=== PATIENT | male | born 1950 | race Caucasian/White ===

== ENCOUNTER 2020-10-21 09:53 | Outpatient (REF) | payer MEDICARE, SELFPAY | END 2020-10-21 09:54 | disposition home or self-care (01) | LOC: HO.LAB 09:53 | PROVIDERS: PCP Family Medicine; Visit Provider Internal Medicine | DX: Z20.822 Contact with and (suspected) exposure to COVID-19 (principal) | CPT/HCPCS: C9803; U0003; U0005 ==

== ENCOUNTER 2022-09-30 10:19 | Outpatient (REF) | payer MEDICARE, SELFPAY ==
[2022-09-30 12:13] LABS: Alanine Aminotransferase 16 U/L (0-40); Albumin Level 4.4 g/dL (3.5-5.0); Alkaline Phosphatase 53 U/L (39-117); Anion Gap 13 (12-20); Aspartate Amino Transferase 20 U/L (5-37); Bilirubin Total 0.5 mg/dL (0.0-1.0); Blood Urea Nitrogen 15 mg/dL (9-16); Calcium 9.4 mg/dL (8.4-10.2); Carbon Dioxide 25 mmol/L (22-29); Chloride 102 mmol/L (96-108); Cholesterol 112 mg/dL; Estimated Glomerular Filt Rate > 60; Glucose Random 125 mg/dL (60-115); HDL Cholesterol 38 mg/dL; LDL Cholesterol Calculated 60 mg/dl; Potassium 4.9 mmol/L (3.3-5.1); Sodium 135 mmol/L (135-145); Total Protein 7.7 g/dL (6.5-8.0); Triglycerides 73 mg/dL
[2022-09-30 12:30] LABS: Creatinine Urine 86.73 mg/dL; Microalbumin Urine < 5.0 mg/L
== END 2022-09-30 10:20 | disposition home or self-care (01) ==
LOC: HO.HHCL 10:19
PROVIDERS: Visit Provider General Practice
DX: E11.9 Type 2 diabetes mellitus without complications (principal)
CPT/HCPCS: 36415; 80053; 80061; 82043

== ENCOUNTER 2023-11-24 10:32 | Outpatient (REF) | payer SELFPAY ==
[2023-11-24 12:23] LABS: Alanine Aminotransferase 21 U/L (0-40); Albumin Level 4.3 g/dL (3.5-5.0); Alkaline Phosphatase 56 U/L (39-117); Anion Gap 10 (12-20); Aspartate Amino Transferase 20 U/L (5-37); Bilirubin Total 0.5 mg/dL (0.0-1.0); Blood Urea Nitrogen 14 mg/dL (9-16); Calcium 9.4 mg/dL (8.4-10.2); Carbon Dioxide 28 mmol/L (22-29); Chloride 105 mmol/L (96-108); Cholesterol 111 mg/dL (<200); Estimated Glomerular Filt Rate > 60; Glucose Random 117 mg/dL (60-115); HDL Cholesterol 42 mg/dL (>40); LDL Cholesterol Calculated 56 mg/dL (<100); Potassium 4.4 mmol/L (3.3-5.1); Sodium 139 mmol/L (135-145); Total Protein 7.7 g/dL (6.5-8.0); Triglycerides 65 mg/dL (<150)
[2023-11-24 12:27] LABS: Creatinine Urine 153.23 mg/dL; Microalbum/Creatinine Ratio Ur 7.1 ug/mg cr (<30)
[2023-11-24 12:31] LABS: ~HepC Num1 0.23 S/CO (0.00-0.79); ~Hepatitis C Antibody Nonreactive (Nonreactive)
== END 2023-11-24 10:33 | disposition home or self-care (01) ==
LOC: HO.HHCL 10:32
PROVIDERS: Visit Provider General Practice
DX: E11.9 Type 2 diabetes mellitus without complications (principal)
CPT/HCPCS: 36415; 80053; 80061; 82043; 82570; 86803

== ENCOUNTER 2024-10-21 07:44 | Day surgery (SDC) | payer OTHER, SELFPAY ==
--- OUTSIDE RECORDS SUMMARY | 2024-09-16 14:51 | XMS_ITS | Encounter Summary ---
Author Organization [employer] Address [address] [place] [address] Care Team Providers Care Coffee Urn Attendant Name Role Phone Tammie Bey MD Primary Care Provider [phone] Encounter Details Date Type Department Care Team (Late st Contact Info) Description 05/30/2022 Orders Only [facility] [address] [place] [address] Emili Padilla MD [address] [place] [address] Social History Tobacco Use Types Packs/Day Years Used Date Smoking Tobacco: Never Assessed Sex and Gender Information Value Date Recorded Sex Assigned at Male 01/03/2022 10:14 AM EDT Legal Sex Male 10:14 AM EDT Gender Identity Male 01/03/2022 10:14 AM EDT Sexual Orientation Straight 01/03/2022 10 :14 AM EDT documented as of this encounter Plan of Treatment Upcoming Encounters Date Type Department Care Team (Late st Contact Info) Description 02/25/2025 9:00 AM EST Office Visit [facility] [address] [place] [address] Julian Queenaris [address] [place] [address] documented as of this encounter Visit Diagnoses Not on filedocumented in this encounter Care Teams Coffee Urn Attendant Relationship Specialty Start Date End Date Tammie Bey MD [address] [place] [address] PCP - General Family Medicine 10/29/21 documented as of this encounter
--- OUTSIDE RECORDS SUMMARY | 2024-09-16 14:51 | XMS_ITS | Patient Health Record ---
Author Organization [facility] Address [address] [place] [address] Care Team Providers Care Hip Hop Dance Instructor Name Role Phone Tammie Bey M.D. Primary Care Provider Jaison Wyman Unavailable [phone] Allergies Allergen (clinical drug ingredient) Drug/Non Drug Allergy documented on EMR Reaction Allergy Type Onset Date Status ioversol Ioversol Unknown Drug Allergy Active Reason For Referral No Information Medications Medication SIG (Take, Route, Fr equency, Duration) Notes Start Date End Date Status Claritin Active metFORMIN HCl Active amLODIPine Besylate Active Simvastatin Active Diovan Active Social History Tobacco Use: Social History Observation Description Date Details (start date - stop date) Never Smoker NA - NA Tobacco Control (Standard) Question Answer Notes Tobacco use: Nonsmoker AUDIT-C (Standard) Question Answer Notes Did you have a drink contain ing alcohol in the past year? Yes How often did you have a dri nk containing alcohol in the past year? Monthly or less (1 point) How many drinks did you have on a typical day when you were drinking in the past year? 1 or 2 drinks (0 point) How often did you have six o r more drinks on one occasion in the past year? Never (0 point) Points 1 Interpretation Negative Section Notes: Occasional beers Problems Problem Type SNOMED Code ICD Code Onset Dates Problem Status W/U Status Risk Notes Problem Screen for colon cancer (Z12.11) Active confirmed Problem Preprocedural examination ([id number]) Preprocedural examination (Z01.818) Active confirmed Vital Signs Blood pressure diastolic 77 mm Hg 07/30/2024 Height 63 in 07/30/2024 Blood pressure systolic 111 mm Hg 07/30/2024 Weight 134 lbs 07/30/2024 BMI 23.73 kg/m2 07/30/2024 Procedures Procedure Date Ordered Date Performed Result Body Sit e COLONOSCOPY 07/30/2024 N/A Encounters Encounter Location Date Provider Diagnosis [facility] [address] [place] [address] 07/30/2024 Jaison Morin Screen for colon can cer Z12.11 and Preprocedural examination Z01.818 Assessments Encounter Date Diagnosis (ICD Code) Assessment Notes Treatment Notes Treatment Clinical Notes Section Notes 07/30/2024 Screen for colon cancer (ICD-10 - Z12.11) .Overall, Adiel appears quite well. Given his age, good clinical appearance, and last colonoscopy being approximately 10 years ago, I did recommend a follow-up colonoscopy for further screening purposes. We did review the rationale for that in regard to colon cancer prevention. Full consent has been taken for this, including risk of bleeding and perforation. The procedure will be done with monitored anesthesia care. He was given the below instructions regarding adjustment of his medications for the procedure. Adiel was comfortable with this plan. Thank you again for allowing me to participate in Adiel's care. I shall continue to keep you advised of his progress.. 07/30/2024 Preprocedural examination (ICD-10 - Z01.818) .Overall, Adiel appears quite well. Given his age, good clinical appearance, and last colonoscopy being approximately 10 years ago, I did recommend a follow-up colonoscopy for further screening purposes. We did review the rationale for that in regard to colon cancer prevention. Full consent has been taken for this, including risk of bleeding and perforation. The procedure will be done with monitored anesthesia care. He was given the below instructions regarding adjustment of his medications for the procedure. Adiel was comfortable with this plan. Thank you again for allowing me to participate in Adiel's care. I shall continue to keep you advised of his progress.. Plan Of Treatment Pending Test Test Name Order Date COLONOSCOPY 07/30/2024 Next Appt Details Provider Name:Jaison Morin , 10/21/2024 10:20:00 AM, [address] [facility] , [place], [place], [id number], Insurance Providers Payer Name Payer Address Payer Phone Subscriber Number Group Number Insured Name Patient Relationship to Insured Coverage Start Date Coverage End Date [facility] [address] Attn Claims [place] [id number] ADIEL ZHANG Self - patient is the insured Medical (General) History Medical History History ICD Code Asthma NIDDM Hypercholesterolemia Hypertension Hx of prostate cancer Denies [place],CVA,Renal disease Neg colonoscopy in 2003 with me and azucena marie colonoscopy in approx [place] [facility] Surgical History Surgery Date(Month/Year) Work accident left forearm trauma Appendectomy Tonsillectomy and adenoidectomy Obstruction of colon with a temporary colostomy--no cancer--? diverticulitis Prostatectomy in approx. 2004
[2024-10-17 14:48] VITALS: BMI 23.7
--- NOTE | 2024-10-18 09:36 | HO.ANESPROP2 ---
Documented by User: Dalia Peña NP 10/18/24 09:36 HPI - Anesthesia Eval Consult details Narrative: 74yo M for Colonoscopy [facility] Past Medical History Medical History Prostate cancer Elevated cholesterol HTN (hypertension) Diabetes Asthma Surgical History Surgical History History of tonsillectomy and adenoidectomy Hx of appendectomy History of colon resection Hx of prostatectomy H/O colonoscopy Social History Social History Patient Tobacco Use Status: Never used Tobacco Have you been hit, kicked, punched, or otherwise hurt by someone within the past year? If so, by whom?: No Are you DNR?: No Advance Directives: No Advance Directives Information Provided: Yes Meds Allergies Allergy/AdvReac Type Severity Reaction Status Date / Time ioversol Allergy Unknown Verified 11/30/23 16:12 Home Medications ?Medication ?Instructions ?Recorded ?Confirmed ?Last Taken ?Type amlodipine 2.5 mg tablet 2.5 mg PO DAILY 10/17/24 10/17/24 10/21/24 History famotidine 20 mg tablet 20 mg PO BID 10/17/24 10/17/24 10/18/24 History loratadine 10 mg tablet 10 mg PO DAILY PRN allergies 10/17/24 10/17/24 10/18/24 History metformin 500 mg tablet,extended 1,000 mg PO DAILY 10/17/24 10/17/24 10/18/24 History release 24 hr rosuvastatin 20 mg tablet 20 mg PO BEDTIME 10/17/24 10/17/24 10/18/24 History valsartan 80 mg tablet 80 mg PO DAILY 10/17/24 10/17/24 10/21/24 History Exam Height,Weight and Vital Signs: Height 5 ft 3 in Weight 60.781 kg Assessment and Plan Assessment Anesthesia Assessment: Chart Reviewed Documented by User: Sandy Castillo MD 10/21/24 09:41 [facility] Past Medical History Medical History Prostate cancer Elevated cholesterol HTN (hypertension) Diabetes Asthma Family History Family history of problems with anesthesia: No Surgical History Surgical History History of tonsillectomy and adenoidectomy Hx of appendectomy History of colon resection Hx of prostatectomy H/O colonoscopy History of Problems with Anesthesia: No Social History Social History Patient Tobacco Use Status: Never used Tobacco Have you been hit, kicked, punched, or otherwise hurt by someone within the past year? If so, by whom?: No Are you DNR?: No Advance Directives: No Advance Directives Information Provided: Yes Meds Allergies Allergy/AdvReac Type Severity Reaction Status Date / Time ioversol Allergy Unknown Verified 11/30/23 16:12 Home Medications ?Medication ?Instructions ?Recorded ?Confirmed ?Last Taken ?Type amlodipine 2.5 mg tablet 2.5 mg PO DAILY 10/17/24 10/17/24 10/21/24 History famotidine 20 mg tablet 20 mg PO BID 10/17/24 10/17/24 10/18/24 History loratadine 10 mg tablet 10 mg PO DAILY PRN allergies 10/17/24 10/17/24 10/18/24 History metformin 500 mg tablet,extended 1,000 mg PO DAILY 10/17/24 10/17/24 10/18/24 History release 24 hr rosuvastatin 20 mg tablet 20 mg PO BEDTIME 10/17/24 10/17/24 10/18/24 History valsartan 80 mg tablet 80 mg PO DAILY 10/17/24 10/17/24 10/21/24 History Exam Airway Mallampati Class: II TM Dist: >3cm Neck ROM: Limited Heart: RRR Lungs: CTA Assessment and Plan Assessment Anesthesia Assessment: Anesthesia Plan Discussed Final Anesthetic Review Family History of Problems with Anesthesia: No History of Problems with Anesthesia: No NPO: Yes ASA Class: III Final Preanesthetic Review: No Changes in Pt Med Stat, Meds/Allgs Chart Reviewed, Consent Obtained/Reviewed and Anes Risks/Benef Reviewed Patient Risk: Intermediate Procedure Risk: Low Anesthetic Plan Anesthetic Plan: MAC: Disposition: Standard PACU
[2024-10-21 07:58] VITALS: BP 137/79; PULSE 76; RESP 20; TEMP 36.6; O2SAT 98; BMI 23.3
[2024-10-21] MEDS: Lactated Ringers 1,000 ML 100 ML IVCONT (08:22)
[2024-10-21 08:28] LABS: Glucose, Whole Blood 111 mg/dL (60-115)
[2024-10-21 10:30] VITALS: BP 82/39; PULSE 64; RESP 16; TEMP 36.6; O2SAT 95
--- NOTE | 2024-10-21 10:35 | PM.OP ---
Brief Operative Note Date of Service: 10/21/24 Pre-op diagnosis: Screening Post-op diagnosis: other (Diverticulosis) Procedure: Colonoscopy to the cecum and TI Surgeon: Jaison Morin MD Anesthesia: MAC Was an Cold Mill Inspector used for this Procedure?: No Estimated blood loss (mL): 0 Pathology: none sent Condition: stable Disposition: PACU
[2024-10-21 10:45] VITALS: BP 110/57; PULSE 70; RESP 17; TEMP 36.6; O2SAT 95
--- NOTE | 2024-10-21 10:59 | OP_ITS ---
DATE OF SERVICE: 10/21/2024 SURGEON: Jaison Morin MD INDICATIONS: The patient presents for evaluation of colorectal cancer screening. Full consent has been obtained from him for this, including risks of bleeding and perforation. PREOPERATIVE DIAGNOSIS: Colorectal cancer screening. POSTOPERATIVE DIAGNOSIS: PROCEDURE PERFORMED: Colonoscopy to the cecum and terminal ileum. ESTIMATED BLOOD LOSS: COMPLICATIONS: ANESTHESIA: Medication used, monitored anesthesia care. ASSISTANTS: SPECIMENS: POSTOPERATIVE DIAGNOSES: Colorectal cancer screening, diverticulosis, and internal hemorrhoids. DESCRIPTION OF PROCEDURE: The patient was placed in the left lateral decubitus position. The digital rectal exam revealed no abnormalities. The Olympus video pediatric colonoscope was entered into the rectum and advanced easily to the cecum. Once in the cecum, I did identify a normal-appearing cecal pouch with appendiceal orifice and a normal-appearing ileocecal valve. The terminal ileum was cannulated and appeared normal. The scope was withdrawn back in the colon. The entire cecum and ileocecal valve appeared normal. The scope was slowly withdrawn assessing all mucosal surfaces carefully. Preparation was excellent. I did not visualize any sign of polyps, colitis, nor angiodysplasia. There was a mild amount of sigmoid diverticulosis. In the rectum, scope was retroflexed visualizing internal hemorrhoids, but no other pathology. The rectal mucosa appeared normal. The scope was straightened and withdrawn from the patient. He tolerated the procedure well and was returned to the recovery area in stable condition. IMPRESSION: 1. Diverticulosis. 2. Internal hemorrhoids. PLAN: Given today's negative exam, his age, and no family history of first-degree relatives with colorectal cancer, I advised him that I do not think he will need any further screening colonoscopies. He will see me on a p.r.n. basis. MD ASHUTOSH Bianchi/JESUSL / [phone]
== END 2024-10-21 11:26 | disposition home or self-care (01) ==
PROVIDERS: PCP General Practice; Visit Provider Internal Medicine
PROC: 0DJD8ZZ Inspection of Lower Intestinal Tract, Via Natural or Artificial Opening Endoscopic (ICD-10-PCS; CPT 45378; principal; 2024-10-21 09:30)
DX: Z12.11 Encounter for screening for malignant neoplasm of colon (principal); K57.30 Diverticulosis of large intestine without perforation or abscess without bleeding; K64.8 Other hemorrhoids; Z80.0 Family history of malignant neoplasm of digestive organs; E11.9 Type 2 diabetes mellitus without complications; I10 Essential (primary) hypertension; J45.909 Unspecified asthma, uncomplicated; Z85.46 Personal history of malignant neoplasm of prostate; Z79.84 Long term (current) use of oral hypoglycemic drugs; Z79.02 Long term (current) use of antithrombotics/antiplatelets; Z79.899 Other long term (current) drug therapy
CPT/HCPCS: G0105; 82947; J2371; J2704

== ENCOUNTER 2025-01-27 13:45 | Outpatient (REF) | payer OTHER, SELFPAY ==
--- NOTE | ~2025-01-27 | XR_ITS ---
EXAMINATION: XR CHEST CLINICAL INFORMATION: cough and fever COMPARISON: None available. TECHNIQUE: 2 views of the chest were obtained. FINDINGS: The cardiac, hilar, and mediastinal contours are normal. There are calcified lymph nodes in the hilar regions. The lungs are clear bilaterally. There is no pneumothorax or pleural effusion. There is no focal osseous or soft tissue abnormality. XR/XR chest 2V IMPRESSION: No active pulmonary disease. Electronically signed by: Edgar Moreno MD 01/27/2025 03:24 PM RAFAEL
--- OUTSIDE RECORDS SUMMARY | 2025-01-27 13:00 | XMS_ITS | Encounter Summary ---
Author Organization [employer] Address [address] [facility] 7[address] [place] [address] Care Team Providers Care Credit Professional Name Role Phone Tammie Bey MD Primary Care Provider [phone] Reason for Visit * Reason Comments Chills Encounter Details Date Type Department Care Team ([facility] st Contact Info) Description 01/27/2025 1:00 PM EST Office Visit [facility] [address], [place] [phone] Priya Best NP [address] [place], [place] [phone] Fever, unspecified fever cause (Primary Dx); Chills; Elevated blood pressure reading in office with diagnosis of hypertension; Pneumonia due to infectious organism, unspecified laterality, unspecified part of lung Social History Tobacco Use Types Packs/Day Years Used Date Smoking Tobacco: Never Passive Smoke Exposure: Never Smokeless Tobacco: Never Alcohol Use Standard Drinks/Week Comments Defer 0 (1 standard drink = 0.6 oz pur e alcohol) Depression Answer Date Recorded Patient Health Questionnaire-9 Score 0 06/14/2024 Patient Health Questionnaire-9 Score 0 06/14/2024 Last PHQ-9: Questionnaire Data Not on file 0 06/14/2024 Housing Stability Answer Date Recorded What is your housing situation today? I have tien nolasco 12/26/[address] you li ve. Do you have problems with any of the following? None of the above 12/26/2022 Food Insecurity Answer Date Recorded Within the past 12 months, y ou worried that your food would run out before you got money to buy more: Never True 12/26/2022 Within the past 12 months,th e food you bought just didn't last and you didn't have enough money to get more: Never True Transportation Answer Date Recorded In the past 12 months, has l ack of transportation kept you from medical appts, meetings, work or from getting things needed for daily living? No 06/14/2023 Utilities Answer Date Recorded In the past 12 months, has t he electric, gas, oil or water company threatened to shut off services in your home? No 12/26/2022 Depression Answer Date Recorded Patient Health Questionnaire-2 Score 0 06/14/2024 Internet Access Answer Date Recorded Internet Access Q1 Yes 06/05/2024 Internet Access Q2 Not on file 06/05/2024 Sex and Gender Information Value Date Recorded Sex Assigned at Male 01/03/2022 10:14 AM EDT Legal Sex Male 10:14 AM EDT Gender Identity Male 01/03/2022 10:14 AM EDT Sexual Orientation Straight 01/03/2022 10 :14 AM EDT documented as of this encounter Last Filed Vital Signs Vital Sign Reading Time Taken Comments Blood Pressure 172/85 01/27/2025 1:01 PM EST Pulse 90 01/27/2025 1:01 PM EST Temperature 38.4 C (101.2 F) 01/27/2025 1:01 PM EST Respiratory Rate 21 01/27/2025 1:01 PM EST Oxygen Saturation 94% 01/27/2025 1:01 PM EST Inhaled Oxygen Concentration - - Weight 61.4 kg (135 lb 6.4 oz) 01/27/2025 1:01 P M EST Height 154.9 cm (5' 1 ) 01/27/2025 1:01 PM EST Body Mass Index 25.58 01/27/2025 1:01 PM EST documented in this encounter Progress Notes * Priya Best NP - 01/27/2025 1:00 PM EST SUBJECTIVE: John Vann is a 74 y.o. male who presents to the clinic with complaints of: body aches, fever, and chills. Here with John Vann, 74-year-old male - Onset of body aches and feeling hot since last Monday, January 20, 2025 - Reports subjective fever but did not have means of checking - Occasional shortness of breath - Relief of symptoms with Tylenol, tea, and rest - Able to sleep well after taking Tylenol - No runny nose, cough, sore throat, ear pain - Attended a synagogue conference recently where some attendees were coughing - No known sick contacts at home - Taking blood pressure medication Review of Systems Constitutional: Positive for chills and fever. HENT: Negative. Negative for congestion and sore throat. Eyes: Negative for discharge. Respiratory: Positive for shortness of breath. Negative for cough and chest tightness. Cardiovascular: Negative for chest pain and palpitations. Gastrointestinal: Negative. Negative for abdominal pain, constipation, diarrhea and nausea. Genitourinary: Negative. Negative for difficulty urinating. Musculoskeletal: Positive for myalgias. Negative for arthralgias. Skin: Negative for rash. Neurological: Negative. Negative for dizziness, speech difficulty, light- headedness and headaches. Hematological: Negative. Psychiatric/Behavioral: Negative for behavioral problems, self-injury and suicidal ideas. The patient is not nervous/anxious. Current Medications[1] Allergies[2] OBJECTIVE: Visit Vitals BP (!) 172/85 (BP Location: Left arm, Patient Position: Sitting, BP Cuff Size: Adult) Pulse 90 Temp (!) 101.2 ??F (38.4 ??C) (Oral) Resp 21 Ht 5' 1 (1.549 m) Wt 135 lb 6.4 oz (61.4 kg) SpO2 94% BMI 25.58 kg/m?? Smoking Status Never BSA 1.63 m?? Office Visit on 01/27/2025 Component Date Value Ref Range Status Influenza A 01/27/2025 Negative Negative, Indeterminate Final QC Media Lot # 01/27/2025 [id number] Final Lot# Expiration Date 01/27/2025 12,126 Final Influenza B 01/27/2025 Negative Negative, Indeterminate Final QC Media Lot # 01/27/2025 [id number] Final Lot# Expiration Date 01/27/2025 12,126 Final Rapid COVID Ag 01/27/2025 Negative Final QC Media Lot # 01/27/2025 [id number] Final Lot# Expiration Date 01/27/2025 82,426 Final Physical Exam Vitals reviewed. Constitutional: General: He is not in acute distress. Appearance: Normal appearance. He is not ill-appearing. HENT: Head: Normocephalic and atraumatic. Right Ear: Tympanic membrane and external ear normal. Left Ear: Tympanic membrane and external ear normal. Nose: Nose normal. Mouth/Throat: Mouth: Mucous membranes are moist. Comments: Greenish tongue discoloration which he attributes to mouthwash Eyes: General: No scleral icterus. Extraocular Movements: Extraocular movements intact. Cardiovascular: Rate and Rhythm: Normal rate and regular rhythm. Pulses: Normal pulses. Heart sounds: Normal heart sounds. Pulmonary: Effort: Pulmonary effort is normal. No respiratory distress. Breath sounds: Decreased air movement present. Decreased breath sounds present. Musculoskeletal: General: Normal range of motion. Cervical back: Normal range of motion. Lymphadenopathy: Head: Right side of head: Submental adenopathy present. Left side of head: Submental adenopathy present. Cervical: Cervical adenopathy present. Skin: General: Skin is warm and dry. Neurological: General: No focal deficit present. Mental Status: He is alert and oriented to person, place, and time. Gait: Gait normal. Psychiatric: Mood and Affect: Mood normal. Behavior: Behavior normal. ASSESSMENT/PLAN: Chills: - Administer ibuprofen to reduce fever. Encourage increased fluid intake and rest. Fever, unspecified fever cause: - Fever of unknown etiology, possible pneumonia considered. - Differential includes viral and bacterial infection; flu and COVID tests negative. - Ordered chest X-ray to evaluate for pneumonia. - Discussed empirically treating for pneumona. Antibiotics sent to pharmacy on file - Will notify of X-ray results and discontinue antibiotics if necessary - Prescribed Tylenol 500 mg, two tablets every 6 hours for fever management. - BMP ordered to assess renal fx as no recent lab on file - Ibuprofen given in clinic for fever -ED precautions reviewed Assessment & Plan Chills Orders: POCT Rapid Influenza A SANTACRUZ ID NOW POCT Rapid Influenza B SANTACRUZ ID NOW POCT Rapid Covid-19 BinaxNOW Fever, unspecified fever cause Orders: XR Chest 2 Views; Future acetaminophen (Tylenol Extra Strength) 500 MG tablet; Take 2 tablets (1,000 mg) by mouth every 6 (six) hours if needed for fever for up to 14 days. ibuprofen tablet 400 mg Basic Metabolic Panel; Future Elevated blood pressure reading in office with diagnosis of hypertension -repeat BP unchanged -elevated BP likely due to acute fever -Patient is otherwise asymptomatic -Home monitoring encouraged Pneumonia due to infectious organism, unspecified laterality, unspecified part of lung Orders: amoxicillin-clavulanate (Augmentin) 875-125 MG tablet; Take 1 tablet by mouth 2 times daily for 5 days. azithromycin (Zithromax Z-Roberto) 250 MG tablet; Take 2 tablets (500 mg) on Day 1, followed by 1 tablet (250 mg) once daily on Days 2 through 5. Follow-up with PCP as scheduled for routine health or sooner as needed This note was drafted using Ambient (AI) technology. The patient/patient's guardian has been informed and has consented to the use of this technology: Yes Serbian interpretation provided by [facility] employee PADMA Lazo [1] Current Outpatient Medications: acetaminophen (Tylenol Extra Strength) 500 MG tablet, Take 2 tablets (1,000 mg) by mouth every 6 (six) hours if needed for fever for up to 14 days., Disp: 42 tablet, Rfl: 0 amLODIPine (Norvasc) 2.5 MG tablet, TAKE 1 TABLET BY MOUTH EVERY DAY, Disp: 90 tablet, Rfl: 3 amoxicillin-clavulanate (Augmentin) 875-125 MG tablet, Take 1 tablet by mouth 2 times daily for 5 days., Disp: 10 tablet, Rfl: 0 azithromycin (Zithromax Z-Roberto) 250 MG tablet, Take 2 tablets (500 mg) on Day 1, followed by 1 tablet (250 mg) once daily on Days 2 through 5., Disp: 6 tablet, Rfl: 0 Blood Glucose Monitoring Suppl (ONE TOUCH ULTRA MINI) w/Device kit, Test twice daily, once fasting and once two hours after a meal, Disp: 1 kit, Rfl: 0 Blood Glucose Monitoring Suppl (OneTouch Verio) w/Device kit, Use to check blood sugar 2x daily, Disp: 1 kit, Rfl: 0 famotidine (Pepcid) 20 MG tablet, TAKE 1 TABLET BY MOUTH TWICE A DAY, Disp: 180 tablet, Rfl: 2 Flowflex COVID-19 Ag Home Test kit, USE DIRECTED, Disp: , Rfl: glucose blood (OneTouch Verio) test strip, Use to check blood sugar once daily, Disp: 50 strip, Rfl: 11 Lancets (OneTouch Delica Plus [id number]) [facility], USE TO CHECK BLOOD SUGAR TWICE A DAY, Disp: 100 each, Rfl: 11 loratadine (Claritin) 10 MG tablet, Take 1 tablet (10 mg) by mouth if needed each day for allergies., Disp: 90 tablet, Rfl: 3 Melatonin Maximum Strength 5 MG tablet, TAKE 1 TABLET (5 MG) BY MOUTH IF NEEDED AT BEDTIME (INSOMINA)., Disp: 90 tablet, Rfl: 3 metFORMIN XR (Glucophage-XR) 500 MG 24 hr tablet, TAKE 2 TABLETS BY MOUTH EVERY DAY, Disp: 180 tablet, Rfl: 3 rosuvastatin (Crestor) 20 MG tablet, TAKE 1 TABLET BY MOUTH EVERYDAY AT BEDTIME, Disp: 90 tablet, Rfl: 3 valsartan (Diovan) 80 MG tablet, TAKE 1 TABLET BY MOUTH EVERY DAY, Disp: 90 tablet, Rfl: 3 No current facility-administered medications for this visit. [2] Allergies Allergen Reactions Bakari Inhibitors Cough Ioversol Dizziness documented in this encounter Plan of Treatment Upcoming Encounters Date Type Department Care Team (Late st Contact Info) Description 02/19/2025 8:45 AM EST Office Visit [facility] ADULT DENTAL [address] [place] [address] Bret, Nydia [address] [place] [address] 02/26/2025 9:00 AM EST Office Visit [facility] MEDICINE [address] [place] [address] Tammie Bey MD [address] [place] [address] 2025 10:00 AM EDT Office Visit [facility] OPTOMETRY [address] [place] [address] Maricel Lindsey OD [address] [place] [address] documented as of this encounter Goals Goal Patient Goal Type Associated Problems Recent Progress Patient-Stated? Author Help patients manage their type 2 diabetes Care Plan Help patients manage their type 2 diabetes No Violet Avila MA Weekly blood pressure task Care Plan Weekly blood pressure task Violet Carrasco MA Help patients manage their type 2 diabetes Care Plan Help patients manage their type 2 diabetes No Violet Avila MA Patient has chronic kidney disease Care Plan Patient has chronic kidney disease Violet Carrasco MA Weekly blood pressure task Care Plan Weekly blood pressure task No Violet Avila MA Patient has chronic kidney disease Care Plan Patient has chronic kidney disease Violet Carrasco MA documented as of this encounter Procedures Procedure Name Priority Date/Time Associated Diagnosis Comments XR CHEST 2 VIEWS Routine 01/27/2025 3:07 PM EST Fever, unspecified fever cause BASIC METABOLIC PANEL Routine 01/27/2025 1:54 PM EST Fever, unspecified fever cause POCT INFLUENZA B (ID NOW RAPID MOLECULAR) Routine 01/27/2025 1:38 PM EST Chills POCT INFLUENZA A (ID NOW RAPID MOLECULAR) Routine 01/27/2025 1:37 PM EST Chills POCT RAPID COVID ANTIGEN Routine 01/27/2025 1:11 PM EST Chills documented in this encounter Results * XR Chest 2 Views (01/27/2025 3:07 PM EST) Anatomical Region Laterality Modality Chest Radiographic Roberta ging 01/27/2025 3:07 PM EST Narrative 01/27/2025 3:27 PM EST [address] [address] XRay Report Signed Patient: John Shelby MR#: [id number] : 1950 Acct:[id number] Age/Sex: 74 / M ADM Date: 01/27/25 Loc: HO.HHCX Attending Dr: Priya Best Ordering Physician: Priya Best Date of Service: 01/27/25 Procedure(s): XR chest 2V Accession Number(s): [id number] cc: Priya Best; Sotero,Tammie Reason for Exam: cough and fever EXAMINATION: XR CHEST CLINICAL INFORMATION: cough and fever COMPARISON: None available. TECHNIQUE: 2 views of the chest were obtained. FINDINGS: The cardiac, hilar, and mediastinal contours are normal. There are calcified lymph nodes in the hilar regions. The lungs are clear bilaterally. There is no pneumothorax or pleural effusion. There is no focal osseous or soft tissue abnormality. XR/XR chest 2V IMPRESSION: No active pulmonary disease. Electronically signed by: Edgar Moreno MD 01/27/2025 03:24 PM EST RP Dictated By: Edgar Moreno MD Signed By: <Electronically signed by Edgar Moreno MD in OV> 01/27/25 1524 DD/ 1507 TD/TT: 01/27/25 1511 [employer]: Procedure Note Donotuseinterpreter, Image - 01/27/2025 [place] [address] XRay Report Signed Patient: John ShelbyMR#: [id number] : 1950cct:[id number] Age/Sex: 74 / MADM Date: 01/27/25 Loc: HO.HHCX Attending Dr: Priya Best Ordering Physician: Priya Best Date of Service: 01/27/25 Procedure(s): XR chest 2V Accession Number(s): [id number] cc: Shala Best Sophia Reason for Exam: cough and fever EXAMINATION: XR CHEST CLINICAL INFORMATION: cough and fever COMPARISON: None available. TECHNIQUE: 2 views of the chest were obtained. FINDINGS: The cardiac, hilar, and mediastinal contours are normal. There are calcified lymph nodes in the hilar regions. The lungs are clear bilaterally. There is no pneumothorax or pleural effusion. There is no focal osseous or soft tissue abnormality. XR/XR chest 2V IMPRESSION: No active pulmonary disease. Electronically signed by: Edgar Moreno MD 01/27/2025 03:24 PM EST RP Dictated By: Edgar Moreno MD Signed By: <Electronically signed by Edgar Moreno MD in OV> 01/27/25 1524 DD/ 1507 TD/TT: 01/27/25 1511 Manager [employer]: us Priya Best CARE TEAM COORDINATOR SCHEDULER IMG XR PROCEDURES Final Result * (ABNORMAL) Basic Metabolic Panel (01/27/2025 1:54 PM EST) Pathologist [facility] [place] Sodium 132(L) 135 - 145 mmol/L [facility] Potassium 4.6 3.3 - 5.1 mmol/L [facility] Chloride 97 96 - 108 mmol/L [facility] Carbon Dioxide 25 22 - 29 mmol/L [facility] Anion Gap 15 12 - 20 [facility] Urea Nitrogen (BUN) 19(H) 9 - 16 mg/dL [facility] Creatinine, Serum 1.00 0.5 - 1.4 mg/dL [facility] Estimated Glomerular Filt Rate >60 [facility] Comment:Chronic Kidney Disea se: Estimated GFR < 60 mL/min/[id number] Kidney Disease: Estimated GFR < 15 mL/min/1.73m2 Glucose 130(H) 60 - 115 mg/dL [facility] Calcium 9.4 8.4 - 10.2 mg/dL [facility] Blood Venous blood specimen / Unknown 01/27/2025 1:54 PM EST 01/27/2025 3:57 PM EST us Priya Best CARE TEAM COORDINATOR SCHEDULER LAB BLOOD ORDERABLES Final Resu lt [facility] [address] [place] [address] [phone] * POCT Rapid Influenza B SANTACRUZ ID NOW (01/27/2025 1:38 PM EST) Pathologist [facility] [place] Influenza B Negative Negative, Indeterminate [facility] QC Media Lot # [id number] [facility] Lot# Expiration Date 12126 [facility] Swab 01/27/2025 1:[address] [facility] CARE TEAM COORDINATOR SCHEDULER POINT OF CARE TEST ENTER/EDIT O RDERABLES Final Result Performing Organization Address [facility]/ZIP Co de Phone Number [facility] [address] [place] [phone] * POCT Rapid Influenza A SANTACRUZ ID NOW (01/27/2025 1:37 PM EST) Influenza A Negative Negative, Indeterminate [facility] QC Media Lot # [id number] [facility] Lot# Expiration Date 12,126 [facility] Swab 01/27/2025 1:37 PM [facility] COORDINATOR SCHEDULER POINT OF CARE TEST ENTER/EDIT O RDERABLES Final Result Performing Organization Address [facility] Co de Phone Number [facility] [address] [place] [phone] * POCT Rapid Covid-19 BinaxNOW (01/27/2025 1:11 PM EST) Rapid COVID Ag Negative QC Media Lot # [id number] Lot# Expiration Date 82,426 Swab 01/27/2025 1:[address] [facility] CARE TEAM COORDINATOR SCHEDULER POINT OF CARE TEST ENTER/EDIT O RDERABLES Final Result documented in this encounter Visit Diagnoses Diagnosis Fever, unspecified fever cause- Primary Chills Chills (without fever) Elevated blood pressure reading in office with diagnosis of hypertension Pneumonia due to infectious organism, unspecified laterality, unspecified part of lung documented in this encounter Administered Medications Inactive Administered Medications - up to 3 most recent administrations Medication Order MAR Action Action Date Dose Rate Site ibuprofen tablet 400 mg 400 mg, Oral, Once, On 01/27/25 at 1330, For 1 doseIndications:Fever, unspecified fever cause Given 01/27/2025 1:30 PM EST 400 mg documented in this encounter Additional Health Concerns Active Problems Noted Date Diagnosed Date Help patients manage their type 2 diabetes 01/27 Weekly blood pressure task 01/27/2025 Help patients manage their type 2 diabetes 01/27 Patient has chronic kidney disease 01/27/2025 Weekly blood pressure task 01/27/2025 Patient has chronic kidney disease 01/27/2025 Assessment Noted Time PHQ-9 Depression Total Score: 0 06/15/19 25 9:14 AM EDT documented as of this encounter Care Teams Credit Professional Relationship Specialty Start Date End Date Tammie Bey MD [address] [place] [address] PCP - General Family Medicine 10/29/21 documented as of this encounter
[2025-01-27 17:10] LABS: Anion Gap 15 (12-20); Blood Urea Nitrogen 19 mg/dL (9-16); Calcium 9.4 mg/dL (8.4-10.2); Carbon Dioxide 25 mmol/L (22-29); Chloride 97 mmol/L (96-108); Estimated Glomerular Filt Rate > 60; Potassium 4.6 mmol/L (3.3-5.1); Sodium 132 mmol/L (135-145)
--- OUTSIDE RECORDS SUMMARY | 2025-01-27 18:36 | XMS_ITS | Encounter Summary ---
Author Organization [employer] Address [address] [facility] 7t [place] [address] Care Team Providers Care Cab Supervisor Name Role Phone Tammie Bey MD Primary Care Provider [phone] Reason for Visit * Reason Onset Date Comments Med Refill 10/20/2022 Encounter Details Date Type Department Care Team ([facility] st Contact Info) Description 10/20/2022 Telephone [facility] MEDICINE [address] [place], [place] [phone] Tammie Bey MD [address] [place], [place] [phone] Med Refill Social History Tobacco Use Types Packs/Day Years Used Date Smoking Tobacco: Never Passive Smoke Exposure: Never Smokeless Tobacco: Never Alcohol Use Standard Drinks/Week Comments Defer 0 (1 standard drink = 0.6 oz pur e alcohol) Depression Answer Date Recorded Patient Health Questionnaire-2 Score 0 09/30/2022 Sex and Gender Information Value Date Recorded Sex Assigned at Male 01/03/2022 10:14 AM EDT Legal Sex Male 10:14 AM EDT Gender Identity Male 01/03/2022 10:14 AM EDT Sexual Orientation Straight 01/03/2022 10 :14 AM EDT documented as of this encounter Miscellaneous Notes * Telephone Encounter - Shefali Stanton LPN - 10/20/2022 11:08 AM EDT Medication was sent to [id number] on 09/07/22 90 day supply. * Telephone Encounter - Paulette Vann - 10/20/2022 11:04 AM EDT Tc from pt requesting med refill for medication valsartan (Diovan) 80 MG tablet. documented in this encounter Plan of Treatment Upcoming Encounters Date Type Department Care Team (Late st Contact Info) Description 02/19/2025 8:45 AM EST Office Visit [facility] ADULT DENTAL [address] [place] [address] Bret, Nydia [address] [place] [address] 02/26/2025 9:00 AM EST Office Visit [facility] MEDICINE [address] [place] [address] Tammie Bey MD [address] [place] [address] 2025 10:00 AM EDT Office Visit [facility] OPTOMETRY [address] [place] [address] TarkaMaricel, OD [address] [place] [address] documented as of this encounter Visit Diagnoses Not on filedocumented in this encounter Care Teams Cab Supervisor Relationship Specialty Start Date End Date Tammie Bey MD [address] [place] [address] PCP - General Family Medicine 10/29/21 documented as of this encounter
--- OUTSIDE RECORDS SUMMARY | 2025-01-27 18:36 | XMS_ITS | Encounter Summary ---
Author Organization [employer] Address [address] [facility] 7t [place] [address] Care Team Providers Care Surfacing Machine Operator Name Role Phone Tammie Bey MD Primary Care Provider [phone] Encounter Details Date Type Department Care Team (Late st Contact Info) Description 03/22/2022 Orders Only [facility] MEDICINE [address] [place] [address] Rupal Estrada LPN Social History Tobacco Use Types Packs/Day Years [...] Description 02/19/2025 8:45 AM EST Office Visit [facility] ADULT DENTAL [address] [place] [address] Nydia Queen [address] [place] [address] 02/26/2025 9:00 AM EST Office Visit [facility] MEDICINE [address] [place] [address] Tammie Bey MD [address] [place] [address] 2025 10:00 AM EDT Office Visit [facility] OPTOMETRY [address] [place] [address] Maricel Lindsey, OD [address] [place] [address] documented as of this encounter Visit Diagnoses Not on filedocumented in this encounter Care Teams Surfacing Machine Operator Relationship Specialty Start Date End Date Tammie Bey MD [address] [place] [address] PCP - General Family Medicine 10/29/21 documented as of this encounter
--- OUTSIDE RECORDS SUMMARY | 2025-01-27 18:36 | XMS_ITS | Encounter Summary ---
Author Organization [employer] Address [address] [facility] 7t [place] [address] Care Team Providers Care Nursing Administrator Name Role Phone Tammie Bey MD Primary Care Provider [phone] Encounter Details Date Type Department Care Team (Latest Contact Info) Description 02/11/2019 Abstract [facility] CONVERSIONS Dental, Provider, DDS Social History Tobacco Use Types Packs/Day Years [...] Description 02/19/2025 8:45 AM EST Office Visit [facility] ADULT DENTAL [address] [place] [address] Bret Nydia [address] [place] [address] 02/26/2025 9:00 AM EST Office Visit [facility] MEDICINE [address] [place] [address] Tammie Bey MD [address] [place] [address] 2025 10:00 AM EDT Office Visit [facility] OPTOMETRY [address] [place] [address] Maricel Lindsey, OD [address] [place] [address] documented as of this encounter Visit Diagnoses Not on filedocumented in this encounter Care Teams Nursing Administrator Relationship Specialty Start Date End Date Tammie Bey MD [address] [place] [phone] PCP - General Family Medicine 10/29/21 documented as of this encounter
--- OUTSIDE RECORDS SUMMARY | 2025-01-27 18:36 | XMS_ITS | Encounter Summary ---
Author Organization [employer] Address [address] [facility] [address] [place] [address] Care Team Providers Care Leveler Name Role Phone Tammie Bey MD Primary Care Provider [phone] Reason for Visit * Reason Comments Med Refill Encounter Details Date Type Department Care Team (Late st Contact Info) Description 06/26/2022 Refill [facility] [address] [place], [place] [phone] Emili Padilla MD [address], [place] [phone] Type 2 diabetes mellitus without complication, without long-term current use of insulin ([facility]) Social History Tobacco Use Types Packs/Day Years Used Date Smoking Tobacco: Never Passive Smoke Exposure: Never Smokeless Tobacco: Never Sex and Gender Information Value Date Recorded Sex Assigned at Male 01/03/2022 10:14 AM EDT Legal Sex Male 10:14 AM EDT Gender Identity Male 01/03/2022 10:14 AM EDT Sexual Orientation Straight 01/03/2022 10 :14 AM EDT COVID-19 Exposure Response Date Recorded In the last 10 days, have yo u been in contact with someone who was confirmed or suspected to have Coronavirus/COVID-19? No / Unsure 06/23/2022 7:52 AM EDT documented as of this encounter Plan of Treatment Upcoming Encounters Date Type Department Care Team (Late st Contact Info) Description 02/19/2025 8:45 AM EST Office Visit [facility] [address], [place] [phone] Nydia Queen [address], [place] [phone] 02/26/2025 9:00 AM EST Office Visit [facility] [address] [place] [phone] Tammie Bey MD [address] [place] [address] 2025 10:00 AM EDT Office Visit [facility] [address] [place], [place] [phone] Maricel Lindsey, OD [address], [place] [phone] documented as of this encounter Visit Diagnoses Diagnosis Type 2 diabetes mellitus without complication, without long-term current use of insulin (HCC) documented in this encounter Care Teams Leveler Relationship Specialty Start Date End Date Tammie Bey MD [address] [place] [phone] PCP - General Family Medicine 10/29/21 documented as of this encounter
--- OUTSIDE RECORDS SUMMARY | 2025-01-27 18:36 | XMS_ITS | Clinical Summary ---
Author Organization [employer] Address [address] [facility] [address] [place] [address] Care Team Providers Care Miller Head Wet Process Name Role Phone Tammie Bey MD Primary Care Provider [phone] Allergies Active Allergy Reactions Criticality Noted Date Comments Bakari Inhibitors Cough 02/22/2010 Ioversol Dizziness 04/25/2014 Medications Blood Glucose Monitoring Suppl (ONE TOUCH ULTRA MINI) w/Device kitIndications:T ype 2 diabetes mellitus without complication, without long-term current use of insulin ([facility]) Test twice daily, once fasting and once two hours after a meal 1 kit 3 Active Blood Glucose Monitoring Suppl (OneTouch Verio) w/Device kitIndications:T ype 2 diabetes mellitus without complication, without long-term current use of insulin (HCC) Use to check blood sugar 2x daily 1 kit 3 Active Melatonin Maximum Strength 5 MG tabletIndication s:Primary insomnia TAKE 1 TABLET (5 MG) BY MOUTH IF NEEDED AT BEDTIME (INSOMINA). 90 tablet 3 4 Active Flowflex COVID-19 Ag Home Test kit USE DIRECTED 4 Active glucose blood (OneTouch Verio) test stripIndications :Type 2 diabetes mellitus without complication, without long-term current use of insulin (HCC) Use to check blood sugar once daily 50 strip 11 4 Active amLODIPine (Norvasc) 2.5 MG tablet TAKE 1 TABLET BY MOUTH EVERY DAY 90 tablet 3 4 Active metFORMIN XR (Glucophage-XR) 500 MG 24 hr tablet TAKE 2 TABLETS BY MOUTH EVERY DAY 180 tablet 3 5 Active famotidine (Pepcid) 20 MG tabletIndication s:Gastroesophage al reflux disease without esophagitis TAKE 1 TABLET BY MOUTH TWICE A DAY 180 tablet 2 5 Active loratadine (Claritin) 10 MG tablet Take 1 tablet (10 mg) by mouth if needed each day for allergies. 90 tablet 3 5 Active Lancets (OneTouch Delica Plus [id number]) miscIndications: Type 2 diabetes mellitus without complication, without long-term current use of insulin (HCC) USE TO CHECK BLOOD SUGAR TWICE A DAY 100 each 11 5 Active rosuvastatin (Crestor) 20 MG tablet TAKE 1 TABLET BY MOUTH EVERYDAY AT BEDTIME 90 tablet 3 5 Active valsartan (Diovan) 80 MG tablet TAKE 1 TABLET BY MOUTH EVERY DAY 90 tablet 3 5 Active acetaminophen (Tylenol Extra Strength) 500 MG tabletIndication s:Fever, unspecified fever cause Take 2 tablets (1,000 mg) by mouth every 6 (six) hours if needed for fever for up to 14 days. 42 tablet 5 02/11/20 25 Active amoxicillin-clav ulanate (Augmentin) 875-125 MG tabletIndication s:Pneumonia due to infectious organism, unspecified laterality, unspecified part of lung Take 1 tablet by mouth 2 times daily for 5 days. 10 tablet 5 02/02/20 Active azithromycin (Zithromax Z-Roberto) 250 MG tabletIndication s:Pneumonia due to infectious organism, unspecified laterality, unspecified part of lung Take 2 tablets (500 mg) on Day 1, followed by 1 tablet (250 mg) once daily on Days 2 through 5. 6 tablet 5 02/02/20 Active Hospital, Clinic, or Other Facility Administered Medication Ordered Dose Route Frequency Start Date End Date Status ibuprofen tablet 400 mgIndications:Fever, unspecified fever cause 400 mg PO Once 01/27/2025 01/27/2025 E nded Active Problems Problem Noted Date Diagnosed Date Normal oral exam 08/13/2024 Missing teeth, acquired 07/10/2023 Localized gingival recession 12/28/2022 Contact stomatitis 07/06/2022 Dental plaque 06/23/2022 History of prostate cancer 04/03/2022 Assessment & Plan (10/03/2022 5:46 AM EDT): With residual ED and urinary incontinence [address] Tong at [facility], next appt Nov 2022 Assessment & Plan (04/03/2022 6:28 PM EST): With residual ED and urinary incontinence 20 years ago Mixed stress and urge urinary incontinence 04/03 Assessment & Plan (06/25/2023 8:53 PM EDT): With residual ED and urinary incontinence [address] Tong at [facility], most recent appt Nov 2022 Needs larger sized pads, update DME order Referral for pelvic floor PT Assessment & Plan (02/06/2023 10:05 AM EST): With residual ED and urinary incontinence [address] Tong at [facility], most recent appt Nov 2022 Assessment & Plan (04/03/2022 6:29 PM EST): Will order 12 month supply of liners Hearing loss in left ear 04/29/2021 Essential hypertension 12/22/2014 Assessment & Plan (11/25/2023 12:29 PM EDT): Current A1c: 6.7 BMP: Normal Cr and K Microalbumin: <5 Foot Exam: normal 06/2023 Eye Exam: refer to [facility] vision center Lipid panel: LDL 60, total chol 150 ASCVD: The ASCVD Risk score (Milind PONCE, et al., 2019) failed to calculate for the following reasons: The valid total cholesterol range is 130 to 320 mg/dL Statin: Yes ASA: Yes BAKARI/ARB: Yes Encouraged regular aerobic exercise for improved glycemic control Encouraged daily foot checks Encouraged lean protein snacks and to avoid foods high in sugar and simple carbohydrates Treatment Goals: A1c goal: <7% FBG goal: <130 2 hour post prandial goal: <180 Assessment & Plan (06/25/2023 8:49 PM EDT): Current A1c: 6.7 BMP: Normal Cr and K Microalbumin: <5 Foot Exam: normal today Eye Exam: Discuss at follow up Lipid panel: LDL 60, total chol 150 ASCVD: Calculate pending updated labs Statin: Yes ASA: Yes BAKARI/ARB: Yes Encouraged regular aerobic exercise for improved glycemic control Encouraged daily foot checks Encouraged lean protein snacks and to avoid foods high in sugar and simple carbohydrates Treatment Goals: A1c goal: <7% FBG goal: <130 2 hour post prandial goal: <180 Assessment & Plan (02/06/2023 10:04 AM EST): Current A1c: 6.8 BMP: Normal Cr and K Microalbumin: <5 Foot Exam: Complete at follow up Eye Exam: Discuss at follow up Lipid panel: LDL 60, total chol 150 ASCVD: Calculate pending updated labs Statin: Yes ASA: Yes BAKARI/ARB: Yes Encouraged regular aerobic exercise for improved glycemic control Encouraged daily foot checks Encouraged lean protein snacks and to avoid foods high in sugar and simple carbohydrates Treatment Goals: A1c goal: <7% FBG goal: <130 2 hour post prandial goal: <180 Assessment & Plan (10/03/2022 5:45 AM EDT): At goal Continue Diovan and Amlodipine Assessment & Plan (04/03/2022 6:27 PM EST): At goal Continue Diovan and Amlodipine Mild intermittent asthma 12/22/2014 Type 2 diabetes mellitus 12/22/2014 Assessment & Plan (10/03/2022 5:48 AM EDT): Current A1c: 6.6 BMP: Normal Cr and K Microalbumin: <5 Foot Exam: Complete at follow up Eye Exam: Discuss at follow up Lipid panel: LDL 60, total chol 150 ASCVD: Calculate pending updated labs Statin: Yes ASA: Yes BAKARI/ARB: Yes Encouraged regular aerobic exercise for improved glycemic control Encouraged daily foot checks Encouraged lean protein snacks and to avoid foods high in sugar and simple carbohydrates Treatment Goals: A1c goal: <7% FBG goal: <130 2 hour post prandial goal: <180 Assessment & Plan (04/03/2022 6:28 PM EST): Current A1c: 6.9 BMP: Normal Cr and K Microalbumin: Foot Exam: Complete at follow up Eye Exam: Discuss at follow up Lipid panel: ASCVD: Calculate pending updated labs Statin: Yes ASA: Yes BAKARI/ARB: Yes Encouraged regular aerobic exercise for improved glycemic control Encouraged daily foot checks Encouraged lean protein snacks and to avoid foods high in sugar and simple carbohydrates Treatment Goals: A1c goal: <7% FBG goal: <130 2 hour post prandial goal: <180 Hyperlipidemia with target LDL less than 70 05/2011 Overview (06/14/2024): IMO update Paroxysmal supraventricular tachycardia 10/07/19 12 Assessment & Plan (06/16/2024 4:09 PM EDT): asymptomatic Encounters Date Type Department Care Team Description 01/27/2025 1:00 PM EST Office Visit [facility] [address] [place] [phone] Priya Best NP Fever, unspecified fever cause (Primary Dx); Chills; Elevated blood pressure reading in office with diagnosis of hypertension; Pneumonia due to infectious organism, unspecified laterality, unspecified part of lung 01/27/2025 Travel 12/19/2024 Telephone [facility] [address] [place] [address] [phone] Tammie Bey MD recall 11/20/2024 Refill [facility] [address] [place] [address] Tammie Bey MD from Last 3 Months Immunizations Immunization Administration Dates Next Due Influenza High-dose Quadriva lent Preservative Free 12/01/2021,11/06/2019 Influenza Quadrivalent Adjuvanted 11/08/2022 Influenza injectable quadriv alent IIV4 with preservative 02/04/2016,12/22/2014 Influenza injectable quadriv alent preservative free 11/05/2020 Influenza, High Dose Seasona l, Preservative Free 11/10/2023,12/25/2017,12/21/2016 Influenza, IIV3, injectable 03/12/2014,1 04/25/2009,05/08/2009,12/30,01/04/2007,03/27/2006,12/20/2004 ,01/15/2004,01/29/2003,01/10/2002 Influenza, trivalent, adjuvanted 11/21/2018 Moderna Covid-19 Vaccine 12+ 01/04/2021 Pfizer Covid-19 Vaccine 12+ 11/24/2023, Pneumococcal Conjugate PCV 13 02/09/2016 Pneumococcal Conjugate PCV 20 09/30/2022 Pneumococcal Polysaccharide PPSV23 11/24/2008, RSV Bivalent 12/08/2023 TD (adult), 2 Lf tetanus tox oid, preservative free, adsorbed 08/14/2000 Tdap 09/24/2014 Zoster, Recombinant 06/21/2021,04/23/2021,2018 Zoster, live 03/12/2014 Social History Tobacco Use Types Packs/Day Years Used Date Smoking Tobacco: Never Passive Smoke Exposure: Never Smokeless Tobacco: Never Tobacco Cessation:Counseling Given: Not Answered Alcohol Use Standard Drinks/Week Comments Defer 0 [...] Orientation Straight 01/03/2022 10 :14 AM EDT Last Filed Vital Signs Vital Sign Reading [...] Mass Index 25.58 01/27/2025 1:01 PM EST Plan of Treatment Upcoming Encounters Date Type Department Care Team (Late st Contact Info) Description 02/19/2025 8:45 AM EST Office Visit [facility] ADULT [facility] [address] [place] [address] Bret, Nydia [address] [place] [address] 02/26/2025 9:00 AM EST Office Visit [facility] [address] [place] [address] Tammie Bey MD [address] [place] [address] 2025 10:00 AM EDT Office Visit [facility] OPTOMETRY [address] [place] [address] Maricel Lindsey, OD [address] [place] [address] Health Maintenance Due Date Last Done Comments CT Colonography 1950 FIT DNA/Cologuard 1950 FIT 1950 FOBT 1950 Sigmoidoscopy 1950 Diabetes: Foot Exam 06/22/2024 06/23/2023 DTaP/Tdap/Td Vaccines (2 - Td or Tdap) 09/24/2024 09/24/2014, 08/14/2000 Diabetes: Urine Protein Screening 11/23/2024 11/24/2023, 09/30/2022, 05/17/2021, Additional history exists Lipid Panel 11/23/2024 11/24/2023, 09/04, 05/17/2021, Additional history exists Diabetes: Hemoglobin A1C 12/14/2024 025, 11/24/2023, 06/23/2023, Additional history exists Dental Oral Exam 02/13/2025 08/13/2024, 07/06/2022 Dental Prophylaxis 02/13/2025 08/13/2024, 1 04/11/2023, 07/10/2023, Additional history exists COVID-19 Vaccine ( season) 2025 11/26/2024, 11/24/2023, 12/05/2022, Additional history exists SDOH Screening 06/05/2025 06/05/2024 Alcohol/Substance Use Screening 06/14/2025 06/14/2024 Depression Screening 06/14/2025 06/14/2024, 06/15/19 Dental X-Ray: Bitewings 08/14/2025 08/14/19, 07/10/2023, 06/23/2022 Tobacco Screening 01/27/2026 01/27/2025 Eye Exam 03/12/2026 03/12/2024, 09/2024, 03/12/2024, Additional history exists Dental X-Ray: Full Mouth 08/15/2027 08/13/2024, 0 09/2021 Colonoscopy 10/21/2034 10/21/2024, 01/26/2015 Colorectal Cancer Screening 10/21/2034 Zoster Vaccines Completed 06/21/2021, 04/06, 12/05/2018, Additional history exists Pneumococcal Vaccine: 50+ Years Completed 09/30/2022, 02/09/2016, 11/24/2008, Additional history exists Hepatitis C Screening Completed 11/24/2023 RSV Patients and Patients Aged 60 years or older Completed 12/08/2023 Influenza Vaccine Completed 11/04/2024, , 11/08/2022, Additional history exists HIB Vaccines Aged Out No longer eligi ble based on patient's age to complete this topic HPV Vaccines Aged Out No longer eligi ble based on patient's age to complete this topic Hepatitis A Vaccines Aged Out No long er eligible based on patient's age to complete this topic Hepatitis B Vaccines Aged Out No long er eligible based on patient's age to complete this topic IPV Vaccines Aged Out No longer eligi ble based on patient's age to complete this topic Meningococcal B Vaccine Aged Out No l onger eligible based on patient's age to complete this topic Meningococcal Vaccine Aged Out No carroll lucy eligible based on patient's age to complete this topic RSV under 20 months Aged Out No longe r eligible based on patient's age to complete this topic Rotavirus Vaccines Aged Out No longer eligible based on patient's age to complete this topic Goals Goal Patient Goal Type Associated Problems Recent Progress Patient-Stated? Author Help patients manage their type 2 diabetes Care Plan Help patients manage their type 2 diabetes No Violet Avila MA Weekly blood pressure task Care Plan Weekly blood pressure task No Violet Avila MA Help patients manage their type 2 diabetes Care Plan Help patients manage their type 2 diabetes No Violet Avila MA Patient has chronic kidney disease Care Plan Patient has chronic kidney disease No Violet Avila MA Weekly blood pressure task Care Plan Weekly blood pressure task No Violet Avila MA Patient has chronic kidney disease Care Plan Patient has chronic kidney disease No Violet Avila MA Procedures Procedure Name Priority Date/Time Associated Diagnosis [...] ANTIGEN Routine 01/27/2025 1:11 PM EST Chills HM COLONOSCOPY Routine 10/21/2024 PROPHYLAXIS - ADULT Routine 08/13/2024 9 :00 AM EDT Localized gingival recession Dental plaque INTRAORAL - COMPLETE SERIES OF RADIOGRAPHIC IMAGES Routine 08/13/2024 9:00 AM EDT Localized gingival recession Missing teeth, acquired Dental plaque PERIODIC ORAL EVALUATION - ESTABLISHED PATIENT Routine 08/13/2024 9:00 AM EDT POCT GLYCATED HEMOGLOBIN, TOTAL Routine 06/14/2024 9:14 AM EDT Type 2 diabetes mellitus without complication, without long-term current use of insulin (CMS/HCC) ALBUMIN, RANDOM URINE W/CREATININE Routine 11/24/2023 10:45 AM EDT Type 2 diabetes mellitus without complication, without long-term current use of insulin (CMS/HCC) HEPATITIS C AB W/REFL TO HCV RNA, QN, PCR Routine 11/24/2023 10:40 AM EDT Type 2 diabetes mellitus without complication, without long-term current use of insulin (CMS/HCC) LIPID PANEL, STANDARD Routine 11/24/2023 10:40 AM EDT Type 2 diabetes mellitus without complication, without long-term current use of insulin (CMS/HCC) from Last 3 Months or Most Recently Relevant to Health Maintenance Results * XR Chest 2 Views (01/27/2025 3:07 PM EST) Anatomical Region Laterality Modality Chest Radiographic Roberta ging 01/27/2025 3:07 PM EST Narrative 01/27/2025 3:27 PM EST [address] [place] [address] XRay Report Signed Patient: John Shelby MR#: [id number] : 1950 Acct:[id number] Age/Sex: 74 / M ADM Date: 01/27/25 Loc: [facility] Attending Dr: Priya Best Ordering Physician: Priya Best Date of Service: 01/27/25 Procedure(s): XR chest 2V Accession Number(s): [id number] cc: Priya Best; Tammie Bey Reason for Exam: cough and fever EXAMINATION: [...] by: Edgar Moreno MD 01/27/2025 03:24 PM [facility] [place] Dictated By: Edgar Moreno MD Signed By: <Electronically signed by Edgar Moreno MD in OV> 01/27/25 1524 DD/ 1507 TD/TT: 01/27/25 1511 Mold Sheet Cleaner: Procedure Note Donotuseinterpreter, Image - 01/27/[address] [address] XRay Report Signed Patient: John ShelbyMR#: [id number] : 1950cct:[id number] Age/Sex: 74 / MADM Date: 01/27/25 Loc: [facility] Attending Dr: Priya Best Ordering Physician: Priya Best Date of Service: 01/27/25 Procedure(s): XR chest 2V Accession Number(s): [id number] cc: Priya Best; Tammie Bey Reason for Exam: cough and fever EXAMINATION: [...] 01/27/25 1524 DD/ 1507 TD/TT: 01/27/25 1511 Mold Sheet Cleaner: us Priya Best NP IMG XR PROCEDURES Final Result * (ABNORMAL) Basic Metabolic Panel (01/27/2025 1:54 PM EST) Sodium 132(L) 135 - 145 mmol/L [facility] Potassium 4.6 3.3 - 5.1 mmol/L [facility] Chloride 97 96 - 108 mmol/L [facility] Carbon Dioxide 25 22 - 29 mmol/L [facility] Anion Gap 15 12 - 20 [facility] Urea Nitrogen (BUN) 19(H) 9 - 16 mg/dL [facility] Creatinine, Serum 1.00 0.5 - 1.4 mg/dL [facility] Estimated Glomerular Filt Rate >60 [facility] Comment:Chronic Kidney Disea se: Estimated GFR < 60 mL/min/1.80v3Cfxyny Kidney Disease: Estimated GFR < 15 mL/min/1.73m2 Glucose 130(H) 60 - 115 mg/dL [facility] Calcium 9.4 8.4 - 10.2 mg/dL [facility] Blood Venous blood specimen / Unknown 01/27/2025 1:54 PM EST 01/27/2025 3:57 PM EST us Priya Best NP LAB BLOOD ORDERABLES Final Resu lt [facility] [address] [place] [address] [phone] * POCT Rapid Influenza B SANTACRUZ ID NOW (01/27/2025 1:38 PM EST) Influenza B Negative Negative, Indeterminate [facility] QC Media Lot # [id number] [facility] Lot# Expiration Date [facility] Swab 01/27/2025 1:38 PM EST us Priya Appram UNDERWRITER MORTGAGE LOAN POINT OF CARE TEST ENTER/EDIT O RDERABLES Final Result Performing Organization Address [facility] [[email or web address]] Co de Phone Number [facility] [address] [place] [phone] * POCT Rapid Influenza A SANTACRUZ ID NOW (01/27/2025 1:37 PM EST) Influenza A Negative Negative, Indeterminate [facility] QC Media Lot # [id number] [facility] Lot# Expiration Date [facility] Swab 01/27/2025 1:37 PM EST us Priya Appram UNDERWRITER M[employer] LOAN POINT OF CARE TEST ENTER/EDIT O RDERABLES Final Result Performing Organization Address [facility] [[email or web address]] Co de Phone Number [facility] [address] [place] [phone] * POCT Rapid Covid-19 BinaxNOW (01/27/2025 1:11 PM EST) Rapid COVID Ag Negative QC Media Lot # [id number] Lot# Expiration Date [id number] Swab 01/27/2025 1:11 PM EST us Priya Appram UNDERWRITER [employer] LOAN POINT OF CARE TEST ENTER/EDIT O RDERABLES Final Result * Hm Colonoscopy (10/21/2024) Colonoscopy Normal Normal Narrative Maggi Workman - 10/21/2024 Normal exam no further screening needed Sole Perez MD HEALTH MAINTENANCE Final Result * (ABNORMAL) POCT HGB A1C (06/14/2024 9:14 AM EDT) Hemoglobin A1C 6.4(A) 4.0 - 6.0 % QC Media Lot # [id number] Lot# Expiration Date Blood 06/14/2024 9:14 AM EDT Tammie Bey MD POINT OF CARE TEST ENTER/EDIT ORDERABLES Final Result * Albumin, Random Urine W/Creatinine (11/24/2023 10:45 AM EDT) Creatinine, Urine 153.23 mg/dL [facility] Microalbumin Urine 11.0 mg/L [facility] Microalbum Creatinine Ratio Ur 7.1 <30 ug/mg cr [facility] Comment:Albumin/Creatinine R atio Reference Ranges: Normal: < 30 ug/mg creatinine Microalbuminuria: 30 - 300 ug/mg creatinineClinical Albuminuria: > 300 ug/mg creatinine Urine (Urine, Random) 11/24/2023 10:45 AM EDT 11/24/2023 11:42 AM EDT Tammie Bey MD LAB URINE ORDERABLES Final Res ult [facility] [address] [place] [phone] * Hepatitis C Antibody with Reflex to HCV, RNA, Quantitative, Real-Time PCR (11/24/2023 10:40 AM EDT) Hepatitis C Antibody Nonreactive Nonreactive [facility] Comment:Antibodies to HCV no t detected; does not exclude early acuteHCV infection. Blood Venous blood specimen / Unknown 11/24/2023 10:40 AM EDT 11/24/2023 11:23 AM EDT Tammie Bye MD LAB BLOOD ORDERABLES Final Res ult Performing Organization Address [facility] [[email or web address]] Co de Phone Number [facility] [address] [place] [address] [phone] * Lipid Panel, Standard (11/24/2023 10:40 AM EDT) Triglycerides 65 <150 mg/dL [facility] Comment:Desirable Triglyceri de: less than 150 mg/dLBorderline High Triglyceride 150-199 mg/dLHigh Triglyceride: 200-499 mg/dLVery High Triglyceride: greater than or equal to 5OO mg/dL Cholesterol 111 <200 mg/dL [facility] Comment:Desirable Cholestero l: less than 200 mg/dLBorderline High Cholesterol: 200-239 mg/dLHigh Cholesterol: greater than 239 mg/dL LDL Cholesterol Calculated 56 <100 mg/dL [facility] Comment:Desirable LDL: less than 100 mg/dLNear Optimal/Above Optimal LDL: 110- 129 mg/dLBorderline High LDL: 130-159 mg/dLHigh LDL: 160-189 mg/dLVery High LDL: greater than or equal to 190 mg/dL HDL Cholesterol 42 >40 mg/dL [facility] Comment:Desirable HDL: great er than 40 mg/dL Note: This HDL assay may give artificially low results in patients with liver disease. Blood Venous blood specimen / Unknown 11/24/2023 10:40 AM EDT 11/24/2023 11:23 AM EDT Tammie Bey MD LAB BLOOD ORDERABLES Final Res ult Performing Organization Address [facility]/ZIP Co de Phone Number [facility] [address] [place] [phone] [phone] from Last 3 Months or Most Recently Relevant to Health Maintenance Additional Health Concerns Active Problems Noted Date Diagnosed Date Help patients manage their type 2 diabetes 01/27 Weekly blood pressure task 01/27/2025 Help patients manage their type 2 diabetes 01/27 Patient has chronic kidney disease 01/27/2025 Weekly blood pressure task 01/27/2025 Patient has chronic kidney disease 01/27/2025 Insurance [facility] [employer] ([facility]-SNP) [facility] [employer] ([facility]-SNP) [facility] Care Teams Miller Head Wet Process Relationship Specialty Start Date End Date Tammie Bey MD [address] [place] [phone] PCP - General Family Medicine 10/29/21
--- OUTSIDE RECORDS SUMMARY | 2025-01-27 18:36 | XMS_ITS | Encounter Summary ---
Author Organization [employer] Address [address] [facility] [address] [place] [address] Care Team Providers Care Seamer Elastic Band Name Role Phone Tammie Bey MD Primary Care Provider [phone] Encounter Details Date Type Department Care Team (Latest Contact Info) Description 05/10/2021 Abstract [facility] CONVERSIONS Dental, Provider, DDS Social History [...] Description 02/19/2025 8:45 AM EST Office Visit [facility] ADULT DENTAL [address] [place] [address] Bret Nydia [address] [place] [address] 02/26/2025 9:00 AM EST Office Visit [facility] MEDICINE [address] [place] [address] Tammie Bey MD [address] [place] [address] 2025 10:00 AM EDT Office Visit [facility] OPTOMETRY [address] [place] [address] Maricel Lindsey, OD [address] [place] [address] documented as of this encounter Visit Diagnoses Not on filedocumented in this encounter Care Teams Seamer Elastic Band Relationship Specialty Start Date End Date Tammie Bey MD [address] [place] [phone] PCP - General Family Medicine 10/29/21 documented as of this encounter
--- OUTSIDE RECORDS SUMMARY | 2025-01-27 18:36 | XMS_ITS | Encounter Summary ---
Author Organization [employer] Address 75 [facility] 7t [place] [address] Care Team Providers Care Insulation Cutter Name Role Phone Tammie Bey MD Primary Care Provider [phone] Encounter Details Date Type Department Care Team (Latest Contact Info) Description 07/23/2018 Abstract [facility] CONVERSIONS Dental, Provider, DDS Social History Tobacco [...] Description 02/19/2025 8:45 AM EST Office Visit [facility] ADULT DENTAL [address] [place] [address] Bret Nydia [address] [place] [address] 02/26/2025 9:00 AM EST Office Visit [facility] MEDICINE [address] [place] [address] Tammie Bey MD 230 [place] [address] 2025 10:00 AM EDT Office Visit [facility] OPTOMETRY [address] [place] [address] Maricel Lindsey, OD [address] [place] [address] documented as of this encounter Visit Diagnoses Not on filedocumented in this encounter Care Teams Insulation Cutter Relationship Specialty Start Date End Date Tammie Bey MD [address] [place] [address] PCP - General Family Medicine 10/29/21 documented as of this encounter
--- OUTSIDE RECORDS SUMMARY | 2025-01-27 18:36 | XMS_ITS | Encounter Summary ---
Author Organization [employer] Address 75 [facility] 7t [place] [address] Care Team Providers Care Profile Mill Operator Tape Control Name Role Phone Tammie Bey MD Primary Care Provider [phone] Reason for Visit * Reason Onset Date Comments Med Refill 01/24/2023 Encounter Details Date Type Department Care Team ([facility] st Contact Info) Description 01/24/2023 Telephone [facility] MEDICINE [address] [place], [place] [phone] Tammie Bey MD 230 [place], [place] [phone] Med Refill Social History Tobacco Use Types Packs/Day Years Used Date Smoking Tobacco: Never Passive Smoke Exposure: Never Smokeless Tobacco: Never Alcohol Use Standard Drinks/Week Comments Defer 0 (1 standard drink = 0.6 oz pur e alcohol) Housing Stability Answer Date Recorded What is your housing situation today? I have tienyann nolasco 12/26/[address] you [...] from getting things needed for daily living? Yes, it has kept me from medical appointments or getting medications. 12/14/2022 Utilities Answer Date Recorded In the past [...] Telephone Encounter - Shefali Stanton LPN - 01/24/2023 11:56 AM EST Medication pended to PCP awaiting approval. * Telephone Encounter - Mita Serra - 01/24/2023 11:55 AM EST Tc from pt requesting med refill on; valsartan (Diovan) 80 MG tablet documented in this encounter Plan of Treatment Upcoming Encounters Date Type Department Care Team (Late st Contact Info) Description 02/19/2025 8:45 AM EST Office Visit [facility] ADULT DENTAL [address] [place] [address] Bret, Nydia [address] [place] [address] 02/26/2025 9:00 AM EST Office Visit [facility] MEDICINE [address] [place] [address] Tammie Bey MD 230 [place] [address] 2025 10:00 AM EDT Office Visit [facility] OPTOMETRY [address] [place] [address] Maricel Lindsey, OD 267 [place] [address] documented as of this encounter Visit Diagnoses Not on filedocumented in this encounter Care Teams Profile Mill Operator Tape Control Relationship Specialty Start Date End Date Tammie Bey MD 230 [place] [address] PCP - General Family Medicine 10/29/21 documented as of this encounter
--- OUTSIDE RECORDS SUMMARY | 2025-01-27 18:36 | XMS_ITS | Encounter Summary ---
Author Organization [employer] Address 75 [facility] 7t [place] [address] Care Team Providers Care Dictaphone Operator Name Role Phone Tammie Bey MD Primary Care Provider [phone] Encounter Details Date Type Department Care Team (Latest Contact Info) Description 01/27/2025 Travel Social History Tobacco Use Types Packs/Day Years [...] Description 02/19/2025 8:45 AM EST Office Visit [facility] ADULT DENTAL 230 [place] [address] Bret, Nydia [address] [place] [address] 02/26/2025 9:00 AM EST Office Visit [facility] MEDICINE [address] [place] [address] Tammie Bey MD 230 [place] [address] 2025 10:00 AM EDT Office Visit [facility] OPTOMETRY [address] [place] [address] Maricel Lindsey OD [address] [place] [address] documented as of this encounter Goals Goal Patient Goal Type Associated Problems Recent Progress Patient-Stated? Author Help patients manage their type 2 diabetes Care Plan Help patients manage their type 2 diabetes Violet Carrasco MA Weekly blood pressure task Care Plan Weekly blood pressure task No Violet Avila MA Help patients manage their type 2 diabetes Care Plan Help patients manage their type 2 diabetes Violet Carrasco MA Patient has chronic kidney disease Care Plan Patient has chronic kidney disease Violet Carrasco MA Weekly blood pressure task Care Plan Weekly blood pressure task Violet Carrasco MA Patient has chronic kidney disease Care Plan Patient has chronic kidney disease No Violet Avila MA documented as of this encounter Visit Diagnoses Not on filedocumented in this encounter Additional Health Concerns Active [...] documented as of this encounter Care Teams Dictaphone Operator Relationship Specialty Start Date End Date Tammie Bey MD 230 [place] [address] PCP - General Family Medicine 10/29/21 documented as of this encounter
--- OUTSIDE RECORDS SUMMARY | 2025-01-27 18:36 | XMS_ITS | Encounter Summary ---
Author Organization [employer] Address 75 [facility] 7t [place] [address] Care Team Providers Care Industrial Engineering Name Role Phone Tammie Bey MD Primary Care Provider [phone] Encounter Details Date Type Department Care Team (Late st Contact Info) Description 05/30/[address] [facility] MEDICINE [address] [place] [address] Emili Padilla MD [address] [place] [address] [phone] Social History Tobacco Use Types Packs/Day Years [...] Description 02/19/2025 8:45 AM EST Office Visit [facility] ADULT DENTAL [address] [place] [address] Nydia Queen 230 [place] [address] 02/26/2025 9:00 AM EST Office Visit [facility] MEDICINE [address] [place] [address] Tammie Bey MD [address] [place] [address] [phone] 10:00 AM EDT Office Visit [facility] OPTOMETRY [address] [place] [address] Maricel Lindsey, OD 267 [place] [address] documented as of this encounter Visit Diagnoses Not on filedocumented in this encounter Care Teams Industrial Engineering Relationship Specialty Start Date End Date Tammie Bey MD [address] [place] [address] [phone] PCP - General Family Medicine 10/29/21 documented as of this encounter
--- OUTSIDE RECORDS SUMMARY | 2025-01-27 18:36 | XMS_ITS | Encounter Summary ---
Author Organization [employer] Address 75 [facility] 7t [place] [address] Care Team Providers Care Front Man Name Role Phone Tammie Bey MD Primary Care Provider [phone] Reason for Visit * Reason Comments Med Refill Encounter Details Date Type Department Care Team (Late st Contact Info) Description 10/20/2022 Refill [facility] MEDICINE 230 [place], [place] [phone] Shefali Alfaro DO 230 [place] [address] Social History Tobacco Use Types Packs/Day Years [...] 02/19/2025 8:45 AM EST Office Visit [facility] ADULT DENTAL [address] [place] [address] Nydia Queen 230 [place] [address] 02/26/2025 9:00 AM EST Office Visit [facility] MEDICINE [address] [place] [address] Tammie Bey MD 230 [place] [address] 2025 10:00 AM EDT Office Visit [facility] OPTOMETRY [address] [place], [place] [phone] Maricel Lindsey, OD 267 [place], [place] [phone] documented as of this encounter Visit Diagnoses Not on filedocumented in this encounter Care Teams Front Man Relationship Specialty Start Date End Date Tammie Bey MD 230 [place], [place] [phone] PCP - General Family Medicine 10/29/21 documented as of this encounter
--- OUTSIDE RECORDS SUMMARY | 2025-01-27 18:36 | XMS_ITS | Encounter Summary ---
Author Organization [employer] Address 75 [facility] 7t [place] [address] Care Team Providers Care Motel Clerk Name Role Phone Tammie Bey MD Primary Care Provider [phone] Encounter Details Date Type Department Care Team (Late st Contact Info) Description 11/10/2022 Orders Only [facility] MEDICINE [address] [place] [address] [phone] ProviderSole MD Social History Tobacco Use Types Packs/Day Years [...] Description 02/19/2025 8:45 AM EST Office Visit [facility] ADULT DENTAL [address] [place] [address] Nydia Queen 230 [place] [address] 02/26/2025 9:00 AM EST Office Visit [facility] MEDICINE [address] [place] [address] Tammie Bey MD [address] [place] [address] [phone] 10:00 AM EDT Office Visit [facility] OPTOMETRY [address] [place] [address] Maricel Lindsey, OD [address] [place] [address] documented as of this encounter Procedures Procedure Name Priority Date/Time Associated Diagnosis Comments HM COLONOSCOPY Routine 01/26/2015 documented in this encounter Results * Hm Colonoscopy (01/26/2015) Historical Provider HEALTH MAINTENANCE Final Result documented in this encounter Visit Diagnoses Not on filedocumented in this encounter Care Teams Motel Clerk Relationship Specialty Start Date End Date Tammie Bey MD 230 [place] [address] PCP - General Family Medicine 10/29/21 documented as of this encounter
--- OUTSIDE RECORDS SUMMARY | 2025-01-27 18:36 | XMS_ITS | Encounter Summary ---
Author Organization [employer] Address 75 [facility] 7t [place] [address] Care Team Providers Care Chief Service Observer Name Role Phone Tammie Bey MD Primary Care Provider [phone] Reason for Visit * Reason Comments Med Refill Encounter Details Date Type Department Care Team (Late st Contact Info) Description 10/20/2022 Refill [facility] MEDICINE 230 [place], [place] [phone] Shefali Alfaro DO 230 [place] [address] Social History Tobacco Use Types Packs/Day Years [...] Description 02/19/2025 8:45 AM EST Office Visit [facility] ADULT DENTAL 230 [place] [address] Nydia Queen 230 [place] [address] 02/26/2025 9:00 AM EST Office Visit [facility] MEDICINE [address] [place] [address] Tammie Bey MD 230 [place] [address] 2025 10:00 AM EDT Office Visit [facility] OPTOMETRY [address] [place], [place] [phone] Maricel Lindsey, OD 267 [place], [place] [phone] documented as of this encounter Visit Diagnoses Not on filedocumented in this encounter Care Teams Chief Service Observer Relationship Specialty Start Date End Date Tammie Bey MD 230 [place], [place] [phone] PCP - General Family Medicine 10/29/21 documented as of this encounter
--- OUTSIDE RECORDS SUMMARY | 2025-01-27 18:36 | XMS_ITS | Encounter Summary ---
Author Organization [employer] Address 75 [facility] 7t [place] [address] Care Team Providers Care Metal Spinner Name Role Phone Tammie Bey MD Primary Care Provider [phone] Encounter Details Date Type Department Care Team (Late st Contact Info) Description 05/20/2022 Orders Only [facility] MEDICINE [address] [place] [address] Tammie Bey MD [address] [place] [address] Type 2 diabetes mellitus without complication, without long-term current use of insulin ([facility]) (Primary Dx) Social History Tobacco Use Types Packs/Day Years [...] Description 02/19/2025 8:45 AM EST Office Visit [facility] ADULT DENTAL [address] [place] [address] Nydia Queen 230 [place] [address] 02/26/2025 9:00 AM EST Office Visit [facility] MEDICINE [address] [place] [address] Tammie Bey MD [address] [place] [address] 2025 10:00 AM EDT Office Visit [facility] OPTOMETRY [address] [place], [place] [phone] Maricel Lindsey, OD [address] [place], [place] [phone] documented as of this encounter Visit Diagnoses Diagnosis Type 2 diabetes mellitus without complication, without long-term current use of insulin (HCC)- Primary documented in this encounter Care Teams Metal Spinner Relationship Specialty Start Date End Date Tammie Bey MD 230 [place], [place] [phone] PCP - General Family Medicine 10/29/21 documented as of this encounter
== END 2025-01-27 13:46 | disposition home or self-care (01) ==
LOC: HO.HHCX 13:45
PROVIDERS: PCP General Practice; Visit Provider Nurse Practitioner
DX: R50.9 Fever, unspecified (principal); R05.9 Cough, unspecified
CPT/HCPCS: 36415; 71046; 80048

== ENCOUNTER → 2025-01-27 14:25 | Outpatient (BNV) | payer OTHER, SELFPAY | PROVIDERS: PCP General Practice; Visit Provider Radiology Diagnostic Radiology | DX: R05.9 Cough, unspecified (principal); R50.9 Fever, unspecified | CPT/HCPCS: 71046 ==

== ENCOUNTER 2025-02-06 10:23 | Outpatient (REF) | payer OTHER, SELFPAY ==
--- OUTSIDE RECORDS SUMMARY | 2024-10-21 04:30 | XMS_ITS ---
Author Organization [facility] Address [address] [place] [address] Care Team Providers Care Design Technology Teacher Name Role Phone Tammie Bey M.D. Primary Care Provider Jaison Wyman [phone] REASON FOR VISIT screening Encounters Encounter Location Date Provider Diagnosis [facility] [address] [place], [place] [id number] 10/21/2024 Jaison Morin Plan Of Treatment No Information Progress Notes * ADEIL ZHANGDOB:1950 (74 yo M)Acc No.[id number]:10/21/2024 COLON WITH MAC Patient: ADIEL MURRAY Provider: Manuel Morin MD :1950 A ge:74 Y S ex:Male Date:10/21/2024 Address:[address] [place] [address] [id number] Pcp:Tammie Bey M.D. Subjective: * Chief Complaints: * S creening * The named appointment provid er may or may not be the originator of this progress note, and it is not deemed complete until electronically signed by the appointment provider. Sign off status: Pending * Provider: Manuel Morin MD Date: 0 10/21/2024 Generated for Leylai ng/Faxing/eTransmitting on: 04/09/2024 12:37 PM EST
--- OUTSIDE RECORDS SUMMARY | 2025-02-06 12:36 | XMS_ITS | Encounter Summary ---
Author Organization [employer] Address 75 [facility] 7t [place] [address] Care Team Providers Care Journeyman Press Operator Name Role Phone Tammie Bey MD Primary Care Provider [phone] Reason for Visit * Reason Comments Med Refill Encounter Details Date Type Department Care Team (Late st Contact Info) Description 06/26/2022 Refill [facility] MEDICINE 230 [place], [place] [phone] Emili Padilla MD 230 [place], [place] [phone] Type 2 diabetes mellitus without complication, without long-term current use of insulin ([facility]) Social History Tobacco Use Types Packs/Day Years [...] 8:45 AM EST Office Visit [facility] ADULT DENTAL 230 [place], [place] [phone] Nydia Queen 230 [place], [place] [phone] 02/26/2025 9:00 AM EST Office Visit [facility] MEDICINE 230 [place] [address] Tammie Bey MD 230 [place] [address] 2025 10:00 AM EDT Office Visit [facility] OPTOMETRY 267 [place], [place] [phone] Maricel Lindsey, OD 267 [place], [place] [phone] documented as of this encounter Visit Diagnoses Diagnosis Type 2 diabetes mellitus without complication, without long-term current use of insulin (HCC) documented in this encounter Care Teams Journeyman Press Operator Relationship Specialty Start Date End Date Tammie Bey MD [address] [place] [address] [phone] PCP - General Family Medicine 10/29/21 documented as of this encounter
--- OUTSIDE RECORDS SUMMARY | 2025-02-06 12:36 | XMS_ITS | Encounter Summary ---
Author Organization [employer] Address 75 [facility] 7t [place] [address] Care Team Providers Care Security Operations Center Operator Name Role Phone Tammie Bey MD Primary Care Provider [phone] Encounter Details Date Type Department Care Team (Late st Contact Info) Description 05/30/2022 Orders Only [facility] MEDICINE [address] [place] [address] Emili Padilla MD [address] [place] [address] [phone] Social History Tobacco Use Types Packs/Day Years [...] Description 02/19/2025 8:45 AM EST Office Visit [facility] ADULT DENTAL [address] [place] [address] Nydia Queen 230 [place] [address] 02/26/2025 9:00 AM EST Office Visit [facility] MEDICINE [address] [place] [address] Tammie Bey MD [address] [place] [address] [phone] 10:00 AM EDT Office Visit [facility] OPTOMETRY [address] [place] [address] Maricel Lindsey, OD 267 [place] [address] documented as of this encounter Visit Diagnoses Not on filedocumented in this encounter Care Teams Security Operations Center Operator Relationship Specialty Start Date End Date Tammie Bey MD [address] [place] [address] [phone] PCP - General Family Medicine 10/29/21 documented as of this encounter
--- OUTSIDE RECORDS SUMMARY | 2025-02-06 12:37 | XMS_ITS | Encounter Summary ---
Author Organization [employer] Address 75 [facility] 7t [place] [address] Care Team Providers Care Nanotechnologist Name Role Phone Tammie Bey MD Primary Care Provider [phone] Reason for Visit * Reason Onset Date Comments Med Refill 01/24/2023 Encounter Details Date Type Department Care Team ([facility] st Contact Info) Description 01/24/2023 Telephone [facility] MEDICINE [address] [place], [place] [phone] Tammie Bey MD 230 [place], [place] [phone] Med Refill Social History Tobacco Use Types [...] Description 02/19/2025 8:45 AM EST Office Visit [facility] ADULT DENTAL 230 [place] [address] Bret, Nydia 230 [place] [address] 02/26/2025 9:00 AM EST Office Visit [facility] MEDICINE [address] [place] [address] Tammie Bey MD 230 [place] [address] 2025 10:00 AM EDT Office Visit [facility] OPTOMETRY 267 [place] [address] Maricel Lindsey, OD 267 [place] [address] documented as of this encounter Visit Diagnoses Not on filedocumented in this encounter Care Teams Nanotechnologist Relationship Specialty Start Date End Date Tammie Bey MD 230 [place] [address] PCP - General Family Medicine 10/29/21 documented as of this encounter
--- OUTSIDE RECORDS SUMMARY | 2025-02-06 12:37 | XMS_ITS | Encounter Summary ---
Author Organization [employer] Address 75 [facility] 7t [place] [address] Care Team Providers Care Asic Engineer Name Role Phone Tammie Bey MD Primary Care Provider [phone] Encounter Details Date Type Department Care Team (Late st Contact Info) Description 05/20/2022 Orders Only [facility] MEDICINE [address] [place] [address] Tammie Bey MD [address] [place] [address] Type 2 diabetes mellitus without complication, without long-term current use of insulin ([facility]) (Primary Dx) Social History Tobacco Use Types [...] 8:45 AM EST Office Visit [facility] ADULT DENTAL [address] [place] [address] Nydia Queen 230 [place] [address] 02/26/2025 9:00 AM EST Office Visit [facility] MEDICINE [address] [place] [address] Tammie Bey MD [address] [place] [address] 2025 10:00 AM EDT Office Visit [facility] OPT[facility] [address] [place], [place] [phone] Maricel Lindsey, OD [address] [place], [place] [phone] documented as of this encounter Visit Diagnoses Diagnosis Type 2 diabetes mellitus without complication, without long-term current use of insulin (HCC)- Primary documented in this encounter Care Teams Asic Engineer Relationship Specialty Start Date End Date Tammie Bey MD 230 [place], [place] [phone] PCP - General Family Medicine 10/29/21 documented as of this encounter
--- OUTSIDE RECORDS SUMMARY | 2025-02-06 12:37 | XMS_ITS | Encounter Summary ---
Author Organization [employer] Address 75 [facility] 7t [place] [address] Care Team Providers Care Pizza Hut Team Member Name Role Phone Tammie Bey MD Primary Care Provider [phone] Encounter Details Date Type Department Care Team (Latest Contact Info) Description 02/11/2019 Abstract [facility] CONVERSIONS Dental, Provider, DDS Social History Tobacco [...] 8:45 AM EST Office Visit [facility] ADULT DENTAL [address] [place] [address] Bret Nydia [address] [place] [address] 02/26/2025 9:00 AM EST Office Visit [facility] MEDICINE [address] [place] [address] Tammie Bey MD 230 [place] [address] 2025 10:00 AM EDT Office Visit [facility] OPTOMETRY 267 [place] [address] Maricel Lindsey, OD [address] [place] [address] documented as of this encounter Visit Diagnoses Not on filedocumented in this encounter Care Teams [employer] Team Member Relationship Specialty Start Date End Date Tammie Bey MD [address] [place] [phone] PCP - General Family Medicine 10/29/21 documented as of this encounter
--- OUTSIDE RECORDS SUMMARY | 2025-02-06 12:37 | XMS_ITS | Encounter Summary ---
Author Organization [employer] Address 75 [facility] 7t [place] [address] Care Team Providers Care Stem Roller Or Crusher Operator Name Role Phone Tammie Bey MD Primary Care Provider [phone] Encounter Details Date Type Department Care Team (Latest Contact Info) Description 05/10/2021 Abstract [facility] CONVERSIONS Dental, Provider, DDS Social History [...] Description 02/19/2025 8:45 AM EST Office Visit [facility] ADULT DENTAL 230 [place] [address] Bret Nydia 230 [place] [address] 02/26/2025 9:00 AM EST Office Visit [facility] MEDICINE 230 [place] [address] Tammie Bey MD 230 [place] [address] 2025 10:00 AM EDT Office Visit [facility] OPTOMETRY 267 [place] [address] Maricel Lindsey, OD 267 [place] [address] documented as of this encounter Visit Diagnoses Not on filedocumented in this encounter Care Teams Stem Roller Or Crusher Operator Relationship Specialty Start Date End Date Tammie Bey MD [address] [place] [address] PCP - General Family Medicine 10/29/21 documented as of this encounter
--- OUTSIDE RECORDS SUMMARY | 2025-02-06 12:37 | XMS_ITS | Encounter Summary ---
Author Organization [employer] Address 75 [facility] 7t [place] [address] Care Team Providers Care Envelope Folding Machine Adjuster Name Role Phone Tammie Bey MD Primary Care Provider [phone] Encounter Details Date Type Department Care Team (Latest Contact Info) Description 07/23/2018 Abstract [facility] CONVERSIONS Dental, Provider, DDS Social History [...] 8:45 AM EST Office Visit [facility] ADULT DENTAL 230 [place] [address] Bret Nydia [address] [place] [address] 02/26/2025 9:00 AM EST Office Visit [facility] MEDICINE 230 [place] [address] Tammie Bey MD 230 [place] [address] 2025 10:00 AM EDT Office Visit [facility] OPTOMETRY [address] [place] [address] Maricel Lindsey, OD 267 [place] [address] documented as of this encounter Visit Diagnoses Not on filedocumented in this encounter Care Teams Envelope Folding Machine Adjuster Relationship Specialty Start Date End Date Tammie Bey MD [address] [place] [address] PCP - General Family Medicine 10/29/21 documented as of this encounter
--- OUTSIDE RECORDS SUMMARY | 2025-02-06 12:37 | XMS_ITS | Encounter Summary ---
Author Organization [employer] Address [address] [facility] 7[address] [place] [address] Care Team Providers Care Solution Manager Name Role Phone aTmmie Bey MD Primary Care Provider [phone] Encounter Details Date Type Department Care Team (Late st Contact Info) Description 01/28/2025 Results Follow-Up [facility] [address] [place], [place] [phone] Priya Best NP [address] [place], [place] [phone] XR Chest 2 Views, POCT Rapid Influenza A [place] ID NOW, POCT Rapid Influenza B [place] ID NOW, Additional followed-up results: 2 Social History Tobacco Use Types Packs/Day Years [...] encounter Miscellaneous Notes * Telephone Encounter - Lulú Hsieh RN - 02/05/2025 2:28 PM EST Pt. Returned call. Advised pt. Of low sodium and pt. Will return to lab tomorrow. Also advised pt. Chest x-ray was negative for pneumonia, pt. Reports he already completed antibiotics. * Telephone Encounter - Lulú Hsieh RN - 02/05/2025 9:46 AM EST TC placed again to pt. At [phone], no answer. Left another message. Attempt x 3. Sending letter to address on file. Pt. To f/up at scheduled appointment with PCP 02/26/25 or sooner prn * Telephone Encounter - Lulú Hsieh RN - 02/04/2025 2:25 PM EST TC placed again to pt. At [phone], no answer, left another VM requesting call back to Red TeamRN Upon receipt of message. Attempt x2. Will reattempt tomorrow if no c/b * Telephone Encounter - Lulú Hsieh RN - 02/03/2025 12:20 PM EST TC returned to pt. At [phone], no answer, left message requesting call back to Red Team RN Upon receipt of message. Will reattempt tomorrow if no c/b * Telephone Encounter - Franklin Blevins - 01/28/2025 3:32 PM EST Tc from pt returning call regarding message prior. * Telephone Encounter - Alicia Wright RN - 01/28/2025 1:25 PM EST T/C to pt via [employer] #[id number] to advise of message from MASTER DYER re: x- ray results and mild hyponatremia and plan to repeat lab. No answer, v/m left to return call to Blue team nurses. * Telephone Encounter - Alicia Wright RN - 01/28/2025 1:19 PM EST ----- Message from Priya Best sent at 01/28/2025 12:59 PM EST ----- Please inform patient sodium level is slightly low. I have ordered repeat to reassess. Thanks ----- Message ----- From: Violet Avila MA Sent: 01/27/2025 1:12 PM EST To: JESUS Whittaker NP to [facility] Blue Team Nurses (Selected Message) MARLENE 01/28/25 11:22 AM Result Note Please call and inform patient X-ray result is normal and does not show pneumonia. Symptoms are most likely due to viral infection. Advise he not take the antibiotics prescribed yesterday. Recommend rest, increase fluids, tylenol/ibuprofen for fever and body aches. Return to clinic with worsening sy mptoms or increasing shortness of breath. Thanks documented in this encounter Plan of Treatment Upcoming Encounters Date Type Department Care Team (Late st Contact Info) Description 02/19/2025 8:45 AM EST Office Visit [facility] [address] [place] [address] Bret, Nydia [address] [place] [address] 02/26/2025 9:00 AM EST Office Visit [facility] [address] [place] [address] Tammie Bey MD [address] [place] [address] 2025 10:00 AM EDT Office Visit [facility] [address] [place] [address] TarMaricel taylor, OD [address] [place] [address] Scheduled Orders Name Type Priority Associated Diagnoses Orde r Schedule Basic Metabolic Panel Lab Routine Low sodium levels Expected: 01/28/2025 (Approximate), Expires: 01/28/2026 documented as of this encounter Goals Goal [...] Care Plan Weekly blood pressure task No Priya Best NP Weekly blood pressure task Care Plan Weekly blood pressure task No Priya Best NP Patient has chronic kidney disease Care Plan Patient has chronic kidney disease No Priya Best NP Patient has chronic kidney disease Care Plan Patient has chronic kidney disease No Priya Best NP documented as of this encounter Visit Diagnoses Diagnosis Low sodium levels- Primary Hyposmolality and/or hyponatremia documented in this encounter Additional Health Concerns Active Problems Noted Date Diagnosed Date Help patients manage their type 2 diabetes 01/27 Weekly blood pressure task 01/27/2025 Help patients manage their type 2 diabetes 01/27 Patient has chronic kidney disease 01/27/2025 Weekly blood pressure task 01/27/2025 Patient has chronic kidney disease 01/27/2025 Weekly blood pressure task 01/28/2025 Weekly blood pressure task 01/28/2025 Patient has chronic kidney disease 01/28/2025 Patient has chronic kidney disease 01/28/2025 Assessment Noted Time PHQ-9 Depression Total Score: 0 06/15/19 9:14 AM EDT documented as of this encounter Care Teams Solution Manager Relationship Specialty Start Date End Date Tammie Bey MD [address] [place] [address] PCP - General Family Medicine 10/29/21 documented as of this encounter
--- OUTSIDE RECORDS SUMMARY | 2025-02-06 12:37 | XMS_ITS | Encounter Summary ---
Author Organization [employer] Address [address] [facility] 7t [place] [address] Care Team Providers Care Real Estate Job Titles Name Role Phone Tammie Bey MD Primary Care Provider [phone] Encounter Details Date Type Department Care Team (Late st Contact Info) Description 03/22/2022 Orders Only [facility] [address] [place] [address] Rupal Estrada LPN Social History Tobacco Use [...] Description 02/19/2025 8:45 AM EST Office Visit [facility] [address] [place] [address] Nydia Queen [address] [place] [address] 02/26/2025 9:00 AM EST Office Visit [facility] [address] [place] [address] Tammie eBy MD [address] [place] [address] 2025 10:00 AM EDT Office Visit [facility] [address] [place] [address] Maricel Lindsey, OD [address] [place] [address] documented as of this encounter Visit Diagnoses Not on filedocumented in this encounter Care Teams Real Estate Job Titles Relationship Specialty Start Date End Date Tammie Bey MD [address] [place] [address] PCP - General Family Medicine 10/29/21 documented as of this encounter
--- OUTSIDE RECORDS SUMMARY | 2025-02-06 12:38 | XMS_ITS | Encounter Summary ---
Author Organization [employer] Address [address] [facility] 7t [place] [address] Care Team Providers Care Cylinder Press Operator Apprentice Name Role Phone Tammie Bey MD Primary Care Provider [phone] Reason for Visit * Reason Comments Med Refill Encounter Details Date Type Department Care Team (Late st Contact Info) Description 10/20/2022 Refill [facility] [address] [place], [place] [phone] Shefali Alfaro DO [address] [place] [address] Social History Tobacco Use Types Packs/Day Years [...] Description 02/19/2025 8:45 AM EST Office Visit [facility] ADULT D[facility] [address] [place] [address] Nydia Queen [address] [place] [address] 02/26/2025 9:00 AM EST Office Visit [facility] [address] [place] [address] Tammie Bey MD [address] [place] [address] 2025 10:00 AM EDT Office Visit [facility] OPTOM[facility] [address] [place], [place] [phone] Maricel Lindsey, OD [address] [place], [place] [phone] documented as of this encounter Visit Diagnoses Not on filedocumented in this encounter Care Teams Cylinder Press Operator Apprentice Relationship Specialty Start Date End Date Tammie Bey MD [address] [place], [place] [phone] PCP - General Family Medicine 10/29/21 documented as of this encounter
--- OUTSIDE RECORDS SUMMARY | 2025-02-06 12:38 | XMS_ITS | Encounter Summary ---
Author Organization [employer] Address [address] [facility] 7t [place] [address] Care Team Providers Care Heat Treat Worker Name Role Phone Tammie Bey MD Primary Care Provider [phone] Encounter Details Date Type Department Care Team (Late st Contact Info) Description 11/10/2022 Orders Only [facility] [address] [place] [phone] ProviderSole MD Social History Tobacco Use Types [...] Description 02/19/2025 8:45 AM EST Office Visit [facility] [address] [place] [address] Nydia Queen [address] [place] [address] 02/26/2025 9:00 AM EST Office Visit [facility] [address] [place] [address] Tammie Bey MD [address] [place] [phone] 10:00 AM EDT Office Visit [facility] [address] [place] [address] Maricel Lindsey, OD [address] [place] [address] documented as of this encounter Procedures Procedure Name Priority Date/Time Associated Diagnosis Comments HM COLONOSCOPY Routine 01/26/2015 documented in this encounter Results * Hm Colonoscopy (01/26/2015) Historical Provider HEALTH MAINTENANCE Final Result documented in this encounter Visit Diagnoses Not on filedocumented in this encounter Care Teams Heat Treat Worker Relationship Specialty Start Date End Date Tammie Bey MD [address] [place] [address] PCP - General Family Medicine 10/29/21 documented as of this encounter
--- OUTSIDE RECORDS SUMMARY | 2025-02-06 12:38 | XMS_ITS | Patient Health Record ---
Author Organization [facility] Address [address] [place] [address] Care Team Providers Care Relief Charge Nurse Name Role Phone Tammie Bey M.D. Primary Care Provider Jaison Wyman [phone] Allergies Allergen (clinical drug ingredient) Drug/Non Drug Allergy documented on EMR Reaction Allergy Type Onset Date Status ioversol Ioversol Unknown Drug Allergy Active Results Component Value Reference Range Flag Notes Glucose, Whole Blood (Not ye t reviewed by provider) Interpretation: Performing Lab:[facility] [place], [address] [place] [id number] Notes/Report: Glucose, Whole Blood 111 60-115 mg/dL N SD TER #: [id number] Reason For Referral No Information Medications Medication SIG (Take, Route, Fr equency, Duration) Notes Start Date End Date Status Claritin Active metFORMIN HCl Active amLODIPine Besylate Active Simvastatin Active Diovan Active Social History Tobacco Use: Social History Observation Description Date Details (start date - stop date) Never Smoker NA - NA Social History Drug/Alcohol: Social Info Question Answer Notes AUDIT-C (Standard) Did you have a drink containing alcohol in the past year? Yes How often did you have a drink containing alcohol in the past year? Monthly or less (1 point) How many drinks did you have on a typical day when you were drinking in the past year? 1 or 2 drinks (0 point) How often did you have six or more drinks on one occasion in the past year? Never (0 point) Points 1 Interpretation Negative Tobacco Use: Social Info Question Answer Notes Tobacco Control (Standard) Tobacco use: Nonsmoker Additional Details Category Social Info Options Details Miscellaneous: Marital status: Occupation: retired Section Notes: Occasional beers Problems Problem Type SNOMED Code ICD Code Onset Dates Problem Status W/U Status Risk Notes Problem Screening for malignant neoplasm of colon (719935615) Screen for colon cancer (Z12.11) Active confirmed Problem Preprocedural examination (836358351780006) Preprocedural examination (Z01.818) Active confirmed Vital Signs Blood pressure diastolic 77 mm Hg 07/30/2024 Height 63 in 07/30/2024 Blood pressure systolic 111 mm Hg 07/30/2024 Weight 134 lbs 07/30/2024 BMI 23.73 kg/m2 07/30/2024 Procedures Procedure Date Ordered Date Performed Result Body Sit e COLONOSCOPY 07/30/2024 N/A Encounters Encounter Location Date Provider Diagnosis [facility] Outpatient [address] [place], [place] [phone] 10/21/2024 Jaison Morin [facility] [address] [place] [address] 07/30/2024 Jaison Morin Screen for colon cancer Z12.11 and Preprocedural examination Z01.818 Assessments Encounter [...] Test Test Name Order Date COLONOSCOPY 07/30/2024 Glucose, Whole Blood 10/21/2024 Insurance Providers Payer Name Payer Address Payer Phone Subscriber Number Group Number Insured Name Patient Relationship to Insured Coverage Start Date Coverage End Date [facility] [address] Attn Claims [place] [id number] VICENTE ADIEL Self - patient is the insured Medical (General) History Medical History History ICD Code Asthma NIDDM Hypercholesterolemia Hypertension Hx of prostate cancer Denies ID,CVA,Renal disease Neg colonoscopy in 2003 with me and azucena marie colonoscopy in approx 2013 at [facility] Surgical History Surgery Date(Month/Year) Prostatectomy in approx. 2004 Obstruction of colon with a temporary colostomy--no cancer--? diverticulitis Tonsillectomy and adenoidectomy Appendectomy Work accident left forearm trauma
--- OUTSIDE RECORDS SUMMARY | 2025-02-06 12:38 | XMS_ITS | Clinical Summary ---
Author Organization [employer] Address [address] [facility] 7t [place] [address] Care Team Providers Care Correspondence School Teacher Name Role Phone Tammie Bey MD Primary Care Provider [phone] Allergies Active Allergy Reactions Criticality Noted Date Comments Bakari Inhibitors Cough 02/22/2010 Ioversol Dizziness 04/25/2014 Medications Blood Glucose Monitoring Suppl (ONE TOUCH ULTRA MINI) w/Device kitIndications:T ype 2 diabetes mellitus without complication, without long-term current use of insulin ([facility]) Test twice daily, once fasting and once [...] 3 5 Active Lancets (OneTouch Delica Plus [id number]) miscIndications: Type 2 diabetes mellitus without complication, [...] for 5 days. 10 tablet 5 02/02/20 azithromycin (Zithromax Z-Roberto) 250 MG tabletIndication s:Pneumonia due to infectious organism, unspecified laterality, unspecified part of lung Take 2 tablets (500 mg) on Day 1, followed by 1 tablet (250 mg) once daily on Days 2 through 5. 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 04/03 Assessment & Plan (06/25/2023 8:53 PM EDT): With residual ED and urinary incontinence [address] Tong at [facility], most recent appt Nov 2022 Needs larger sized pads, update DME order Referral for pelvic floor PT Assessment & Plan (02/06/2023 10:05 AM EST): With residual ED and urinary incontinence [address] Tong at [facility], most recent appt Nov 2022 Assessment & Plan (04/03/2022 6:29 PM EST): Will order 12 month supply of liners Hearing loss in left ear 04/29/2021 Essential hypertension 12/22/2014 Assessment & Plan (11/25/2023 12:29 PM EDT): Current A1c: 6.7 BMP: Normal Cr and K Microalbumin: <5 Foot Exam: normal 06/2023 Eye Exam: refer to [facility] vision center Lipid panel: LDL 60, [...] Encounters Date Type Department Care Team Description 01/28/2025 Results Follow-Up [facility] [address] [place] [phone] Priya Best NP XR Chest 2 Views, POCT Rapid Influenza A [place] ID NOW, POCT Rapid Influenza B [place] ID NOW, Additional followed-up results: 2 01/27/2025 1:00 PM EST Office Visit [facility] [address] [place] [phone] Priya Best NP Fever, unspecified fever cause (Primary Dx); Chills; Elevated blood pressure reading in office with diagnosis of hypertension; Pneumonia due to infectious organism, unspecified laterality, unspecified part of lung 01/27/2025 Travel 12/19/2024 Telephone [facility] [address] [place] [phone] Tammie Bey MD recall 11/20/2024 Refill [facility] [address] [place] [phone] Tammie Bey MD from Last 3 Months [...] Description 02/19/2025 8:45 AM EST Office Visit [facility] ADULT DENTAL [address] [place] [address] Julian Queenaris [address] [place] [address] 02/26/2025 9:00 AM EST Office Visit [facility] [address] [place] [address] Tammie Bey MD [address] [place] [address] 2025 10:00 AM EDT Office Visit [facility] OPTOMETRY [address] [place] [address] Maricel Lindsey, OD [address] [place] [address] Health Maintenance Due Date Last Done Comments [...] exists Dental X-Ray: Full Mouth 08/15/2027 08/13/2024, 04/0 09/2021 Colonoscopy 10/21/2034 10/21/2024, 01/26/2015 Colorectal Cancer [...] chronic kidney disease No Priya Best NP Procedures Procedure Name Priority Date/Time Associated Diagnosis [...] complication, without long-term current use of insulin ([facility]) from Last 3 Months or Most Recently Relevant to Health Maintenance Results * XR Chest 2 Views (01/27/2025 3:07 PM EST) Anatomical Region Laterality Modality Chest Radiographic Roberta ging 01/27/2025 3:07 PM EST Narrative 01/27/2025 3:27 PM EST [address] [address] XRay Report Signed Patient: John Shelby MR#: [id number] : 1950 Acct:[id number] Age/Sex: 74 / M ADM Date: 01/27/25 Loc: HO.HHX Attending Dr: Priya Best Ordering Physician: Priya Best Date of Service: 01/27/25 Procedure(s): XR chest 2V Accession Number(s): [id number] cc: Priya Best; Tammie Bey Reason for [...] 01/27/25 1524 DD/ 1507 TD/TT: 01/27/25 1511 Personal Care Home Administrator: Procedure Note Donotuseinterpreter, Image - 01/27/[address] [place] [address] XRay Report Signed Patient: John ShelbyMR#: [id number] : 1950cct:[id number] Age/Sex: 74 / MADM Date: 01/27/25 Loc: HO.HHCX Attending Dr: Priya Best Ordering Physician: Priya Best Date of Service: 01/27/25 Procedure(s): XR chest 2V Accession Number(s): [id number] cc: Priya Best; Tammie Bey Reason for [...] Edgar Moreno MD 01/27/2025 03:24 PM EST Dictated By: Edgar Moreno MD Signed By: <Electronically signed by Edgar Moreno MD in OV> 01/27/25 1524 DD/ 1507 TD/TT: 01/27/25 1511 Personal Care Home Administrator: Priya Best PEDIATRICS HOSPITALIST IMG XR PROCEDURES Final Result * (ABNORMAL) Basic Metabolic Panel (01/27/2025 1:54 PM EST) Sodium 132(L) 135 - 145 mmol/L [facility] Potassium 4.6 3.3 - 5.1 mmol/L [facility] Chloride 97 96 - 108 mmol/L [facility] Carbon Dioxide 25 22 - 29 mmol/L [facility] Anion Gap 15 12 - 20 [facility] Urea Nitrogen (BUN) 19(H) 9 - 16 mg/dL [facility] Creatinine, Serum 1.00 0.5 - 1.4 mg/dL [facility] Estimated Glomerular Filt Rate >60 [facility] Comment:Chronic Kidney Disea se: Estimated GFR < 60 mL/min/1.85o7Tujlbc Kidney Disease: Estimated GFR < 15 mL/min/1.73m2 Glucose 130(H) 60 - 115 mg/dL [facility] Calcium 9.4 8.4 - 10.2 mg/dL [facility] Blood Venous blood specimen / Unknown 01/27/2025 1:54 PM EST 01/27/2025 3:57 PM EST us Powers Anastasiyam PEDIATRICS HOSPITALIST LAB BLOOD ORDERABLES Final Resu lt Performing Organization Address [facility] Co de Phone Number [facility] [address] [place] [phone] * POCT Rapid Influenza B [place]Z ID NOW (01/27/2025 1:38 PM EST) Influenza B Negative Negative, Indeterminate [facility] QC Media Lot # [id number] [facility] Lot# Expiration Date [facility] Swab 01/27/2025 1:38 PM EST us Priya Langfordm PEDIATRICS HOSPITALIST POINT OF CARE TEST ENTER/EDIT O RDERABLES Final Result Performing Organization Address [facility] Co de Phone Number [facility] [address] [place] [phone] * POCT Rapid Influenza A [place] ID NOW (01/27/2025 1:37 PM EST) Influenza A Negative Negative, Indeterminate [facility] QC Media Lot # [id number] [facility] Lot# Expiration Date [facility] Swab 01/27/2025 1:37 PM EST us Priya Langfordm PEDIATRICS HOSPITALIST POINT OF CARE TEST ENTER/EDIT O RDERABLES Final Result Performing Organization Address [facility] Co de Phone Number [facility] [address] [place] [address] [phone] * POCT Rapid Covid-19 BinaxNOW (01/27/2025 1:11 PM EST) Rapid COVID Ag Negative QC Media Lot # [id number] Lot# Expiration Date [id number] Swab 01/27/2025 1:11 PM EST Priya Best NP POINT OF CARE TEST ENTER/EDIT O RDERABLES Final Result * Hm Colonoscopy (10/21/2024) Pathologist [facility] Colonoscopy Normal Normal Narrative Maggi Workman - 10/21/2024 Normal exam no further screening needed Sole Perez MD HEALTH MAINTENANCE Final Result * (ABNORMAL) POCT HGB A1C (06/14/2024 9:14 AM EDT) Pathologist [facility] Hemoglobin A1C 6.4(A) 4.0 - 6.0 % QC Media Lot # [id number] Lot# Expiration Date ,026 Blood 06/14/2024 9:14 AM EDT Result [facility] Tammie Bey MD POINT OF CARE TEST ENTER/EDIT ORDERABLES Final Result * Albumin, Random Urine W/Creatinine (11/24/2023 10:45 AM EDT) Pathologist [facility] Creatinine, Urine 153.23 mg/dL [facility] Microalbumin Urine 11.0 mg/L [facility] Microalbum Creatinine Ratio Ur 7.1 <30 ug/mg cr [facility] Comment:Albumin/Creatinine R atio Reference Ranges: Normal: < 30 ug/mg creatinine Microalbuminuria: 30 - 300 ug/mg creatinineClinical Albuminuria: > 300 ug/mg creatinine Urine (Urine, Random) 11/24/2023 10:45 AM EDT 11/24/2023 11:42 AM EDT us Tammie Bey MD LAB URINE ORDERABLES Final Res ult Performing Organization Address [facility] Co de Phone Number [facility] [address] [place] [address] [phone] * Hepatitis C Antibody with Reflex to HCV, RNA, Quantitative, Real-Time PCR (11/24/2023 10:40 AM EDT) Hepatitis C Antibody Nonreactive Nonreactive [facility] Comment:Antibodies to HCV no t detected; does not exclude early acuteHCV infection. Blood Venous blood specimen / Unknown 11/24/2023 10:40 AM EDT 11/24/2023 11:23 AM EDT Tammie Bey MD LAB BLOOD ORDERABLES Final Res ult Performing Organization Address [facility] Co de Phone Number [facility] [address] [place] [address] [phone] * Lipid Panel, Standard (11/24/2023 10:40 AM EDT) Triglycerides 65 <150 mg/dL [facility] Comment:Desirable Triglyceri de: less than 150 mg/dLBorderline High Triglyceride 150-199 mg/dLHigh Triglyceride: 200-499 mg/dLVery High Triglyceride: greater than or equal to 5OO mg/dL Cholesterol 111 <200 mg/dL [facility] Comment:Desirable Cholestero l: less than 200 mg/dLBorderline High Cholesterol: 200-239 mg/dLHigh Cholesterol: greater than 239 mg/dL LDL Cholesterol Calculated 56 <100 mg/dL [facility] Comment:Desirable LDL: less than 100 mg/dLNear Optimal/Above Optimal LDL: 110- 129 mg/dLBorderline High LDL: 130-159 mg/dLHigh LDL: 160-189 mg/dLVery High LDL: greater than or equal to 190 mg/dL HDL Cholesterol 42 >40 mg/dL [facility] Comment:Desirable HDL: great er than 40 mg/dL Note: This HDL assay may give artificially low results in patients with liver disease. Blood Venous blood specimen / Unknown 11/24/2023 10:40 AM EDT 11/24/2023 11:23 AM EDT us Tammie Bey MD LAB BLOOD ORDERABLES Final Res ult [facility] [address] [place] [phone] from Last 3 Months or Most [...] 01/28/2025 Patient has chronic kidney disease 01/28/2025 Insurance [facility] ([facility] D-SNP) [facility] (O D-SNP) DENTAL - [facility] Care Teams Correspondence School Teacher Relationship Specialty Start Date End Date Tammie Bey MD [address] [place] [phone] PCP - General Family Medicine 10/29/21
--- OUTSIDE RECORDS SUMMARY | 2025-02-06 12:38 | XMS_ITS | Encounter Summary ---
Author Organization [employer] Address 75 [facility] 7t [place] [address] Care Team Providers Care Manager Clinical Informatics Name Role Phone Tammie Bey MD Primary Care Provider [phone] Reason for Visit * Reason Onset Date Comments Med Refill 10/20/2022 Encounter Details Date Type Department Care Team ([facility] st Contact Info) Description 10/20/2022 Telephone [facility] [address] [place], [place] [phone] Tammie Bey MD [address] [place], [place] [phone] Med Refill Social History Tobacco Use Types [...] 11:08 AM EDT Medication was sent to [id number] on 09/07/22 90 day supply. * Telephone Encounter - Paulette Vann - 10/20/2022 11:04 AM EDT Tc from pt requesting med refill for medication valsartan (Diovan) 80 MG tablet. documented in this encounter Plan of Treatment Upcoming Encounters Date Type Department Care Team (Late st Contact Info) Description 02/19/2025 8:45 AM EST Office Visit [facility] ADULT [facility] [address] [place] [address] Bret, Nydia [address] [place] [address] 02/26/2025 9:00 AM EST Office Visit [facility] [address] [place] [address] Tammie Bey MD [address] [place] [address] 2025 10:00 AM EDT Office Visit [facility] [address] [place] [address] TarkaMaricel, OD [address] [place] [address] documented as of this encounter Visit Diagnoses Not on filedocumented in this encounter Care Teams Manager Clinical Informatics Relationship Specialty Start Date End Date Tammie Bey MD [address] [place] [address] PCP - General Family Medicine 10/29/21 documented as of this encounter
--- OUTSIDE RECORDS SUMMARY | 2025-02-06 12:38 | XMS_ITS | Encounter Summary ---
Author Organization [employer] Address 75 [facility] 7t [place] [address] Care Team Providers Care Corporate Administrator Name Role Phone Tammie Bey MD Primary Care Provider [phone] Reason for Visit * Reason Comments Med Refill Encounter Details Date Type Department Care Team (Late st Contact Info) Description 10/20/2022 Refill [facility] [address] [place], [place] [phone] Shefali Alfaro DO [address] [place] [address] Social History Tobacco Use Types Packs/Day Years [...] Description 02/19/2025 8:45 AM EST Office Visit [facility] ADULT DENTAL [address] [place] [address] Nydia Queen [address] [place] [address] 02/26/2025 9:00 AM EST Office Visit [facility] [address] [place] [address] Tammie Bey MD [address] [place] [address] 2025 10:00 AM EDT Office Visit [facility] OPT[facility] [address], [place] [phone] Maricel Lindsey, OD [address] [place], [place] [phone] documented as of this encounter Visit Diagnoses Not on filedocumented in this encounter Care Teams Corporate Administrator Relationship Specialty Start Date End Date Tammie Bey MD [address] [place], [place] [phone] PCP - General Family Medicine 10/29/21 documented as of this encounter
[2025-02-06 14:16] LABS: Anion Gap 11 (12-20); Blood Urea Nitrogen 15 mg/dL (9-16); Calcium 9.0 mg/dL (8.4-10.2); Carbon Dioxide 28 mmol/L (22-29); Chloride 102 mmol/L (96-108); Estimated Glomerular Filt Rate > 60; Potassium 4.6 mmol/L (3.3-5.1); Sodium 136 mmol/L (135-145)
== END 2025-02-06 10:24 | disposition home or self-care (01) ==
LOC: HO.HHCL 10:23
PROVIDERS: PCP General Practice; Visit Provider Nurse Practitioner
DX: E87.1 Hypo-osmolality and hyponatremia (principal)
CPT/HCPCS: 36415; 80048

== ENCOUNTER 2025-02-26 09:39 | Outpatient (REF) | payer OTHER, SELFPAY ==
--- OUTSIDE RECORDS SUMMARY | 2024-10-21 04:30 | XMS_ITS ---
Author Organization [facility] Address [address] [place] [address] Care Team Providers Care Wool Washing Machine Operator Name Role Phone Tammie Bey M.D. Primary Care Provider Jaison Wyman [phone] REASON FOR VISIT screening Encounters Encounter Location Date Provider Diagnosis [facility] Outpatient [address] [place], [place] [id number] 10/21/2024 Jaison Morin Plan Of Treatment No Information Progress Notes * ADIEL ZHANGDOB:1950 (74 yo M)Acc No.[id number]:10/21/2024 COLON WITH MAC Patient: ADIEL MURRAY Provider: Manuel Morin MD :1950 A ge:74 Y S ex:Male Date:10/21/2024 Address:[address] [place] [address] [id number] Pcp:Tammie Bey M.D. Subjective: * Chief Complaints: * S creening * The named appointment provid er may or may not be the originator of this progress note, and it is not deemed complete until electronically signed by the appointment provider. Sign off status: Pending * Provider: Manuel Morin MD Date: 0 10/21/2024 Generated for Leylai ng/Faxing/eTransmitting on: 04/29/2024 09:45 AM EST
--- OUTSIDE RECORDS SUMMARY | 2025-02-26 09:00 | XMS_ITS | Encounter Summary ---
Author Organization [employer] Address [address] [facility] 7t [place] [address] Care Team Providers Care Rescue Instructor Name Role Phone Tammie Bey MD Primary Care Provider [phone] Reason for Visit * Reason Comments Follow-up Encounter Details Date Type Department Care Team ([facility] st Contact Info) Description 02/26/2025 9:00 AM EST Office Visit [facility] [address] [place], [place] [phone] Tammie Bey MD [address] [place], [place] [phone] Type 2 diabetes mellitus without complication, without long-term current use of insulin (HCC) Social History Tobacco Use Types Packs/Day Years [...] Sign Reading Time Taken Comments Blood Pressure 120/80 02/26/2025 8:53 AM EST Pulse 90 02/26/2025 8:53 AM EST Temperature 36.1 C (96.9 F) 02/26/2025 8:53 AM EST Respiratory Rate 20 02/26/2025 8:53 AM EST Oxygen Saturation 98% 02/26/2025 8:53 AM EST Inhaled Oxygen Concentration - - Weight 59.5 kg (131 lb 3.2 oz) 02/26/2025 8:53 A M EST Height 160 cm (5' 3 ) 02/26/2025 8:53 AM EST Body Mass Index 23.24 02/26/2025 8:53 AM EST documented in this encounter Plan of Treatment Upcoming Encounters Date Type Department Care Team (Late st Contact Info) Description 2025 10:00 AM EDT Office Visit [facility] [address] [place] [address] Maricel Lindsey, OD [address] [place] [address] 08/20/2025 8:45 AM EDT Office Visit [facility] ADULT DENT[facility] [address] [place] [address] Nydia Queen [address] [place] [address] Scheduled Orders Name Type Priority Associated Diagnoses Orde r Schedule Albumin, Random Urine W/Creatinine Lab Routine Type 2 diabetes mellitus without complication, without long-term current use of insulin (HCC) Expected: 02/26/2025 (Approximate), Expires: 02/26/2026 Lipid Panel, Standard Lab Routine Type 2 diabetes mellitus without complication, without long-term current use of insulin (HCC) Expected: 02/26/2025 (Approximate), Expires: 02/26/2026 CBC auto differential Lab Routine Type 2 diabetes mellitus without complication, without long-term current use of insulin (HCC) Expected: 02/26/2025 (Approximate), Expires: 02/26/2026 documented as of this encounter Goals Goal [...] chronic kidney disease No Priya Best NP Weekly blood pressure task Care Plan Weekly blood pressure task No BretNydia hunt Weekly blood pressure task Care Plan Weekly blood pressure task No Bret Nydia Patient has chronic kidney disease Care Plan Patient has chronic kidney disease No Bret Nydia Patient has chronic kidney disease Care Plan Patient has chronic kidney disease No Bret Nydia Weekly blood pressure task Care Plan Weekly blood pressure task No Tammie Bey MD Weekly blood pressure task Care Plan Weekly blood pressure task No Tammie Bey MD Patient has chronic kidney disease Care Plan Patient has chronic kidney disease Tammie Howe MD Patient has chronic kidney disease Care Plan Patient has chronic kidney disease Tammie Howe MD Weekly blood pressure task Care Plan Weekly blood pressure task No Sandra Springer MA Weekly blood pressure task Care Plan Weekly blood pressure task No Sandra Springer MA Patient has chronic kidney disease Care Plan Patient has chronic kidney disease No Sandra Springer MA Patient has chronic kidney disease Care Plan Patient has chronic kidney disease No Sandra Springer MA documented as of this encounter Procedures Procedure Name Priority Date/Time Associated Diagnosis Comments POCT GLYCATED HEMOGLOBIN, TOTAL Routine 02/26/2025 8:55 AM EST Type 2 diabetes mellitus without complication, without long-term current use of insulin (HCC) POCT GLUCOSE ([id number]) Routine 02/26/2025 8:55 AM EST Type 2 diabetes mellitus without complication, without long-term current use of insulin (HCC) documented in this encounter Results * POCT Glucose (02/26/2025 8:55 AM EST) Glucose Blood, POC 135 60 - 200 mg/dL QC Media Lot # [id number] Lot# Expiration Date Blood Capillary blood specimen / Unknown 02/26/2025 8:55 AM EST Result [facility] Tammie Bey MD POINT OF CARE TEST ENTER/EDIT ORDERABLES Final Result * (ABNORMAL) POCT Hgb A1c (02/26/2025 8:55 AM EST) Hemoglobin A1C 6.4(A) 4.0 - 5.7 % QC Media Lot # [id number] Lot# Expiration Date 72 Blood 02/26/2025 8:55 AM EST Result [facility] Tammie Bey MD POINT OF CARE TEST ENTER/EDIT ORDERABLES Final Result documented in this encounter Visit Diagnoses Diagnosis Type 2 diabetes mellitus without complication, without long-term current use of insulin (HCC) documented in this encounter Additional Health Concerns [...] 01/28/2025 Patient has chronic kidney disease 01/28/2025 Weekly blood pressure task 02/18/2025 Weekly blood pressure task 02/18/2025 Patient has chronic kidney disease 02/18/2025 Patient has chronic kidney disease 02/18/2025 Weekly blood pressure task 02/25/2025 Weekly blood pressure task 02/25/2025 Patient has chronic kidney disease 02/25/2025 Patient has chronic kidney disease 02/25/2025 Weekly blood pressure task 02/25/2025 Weekly blood pressure task 02/25/2025 Patient has chronic kidney disease 02/25/2025 Patient has chronic kidney disease 02/25/2025 Assessment Noted Time PHQ-9 Depression Total Score: 0 06/15/19 9:14 AM EDT documented as of this encounter Care Teams Rescue Instructor Relationship Specialty Start Date End Date Tammie Bey MD [address] [place] [address] PCP - General Family Medicine 10/29/21 documented as of this encounter
--- OUTSIDE RECORDS SUMMARY | 2025-02-26 09:45 | XMS_ITS | Encounter Summary ---
Author Organization [employer] Address 75 [facility] 7t [place] [address] Care Team Providers Care Athletic Scout Name Role Phone Tammie Bey MD Primary Care Provider [phone] Encounter Details Date Type Department Care Team (Latest Contact Info) Description 07/23/2018 Abstract [facility] Dental, Provider, DDS Social History [...] Description 2025 10:00 AM EDT Office Visit [facility] OPTOMETRY [address] [place] [address] Maricel Lindsey, OD [address] [place] [address] 08/20/2025 8:45 AM EDT Office Visit [facility] ADULT DENTAL [address] [place] [address] Bret, Nydia [address] [place] [address] documented as of this encounter Visit Diagnoses Not on filedocumented in this encounter Care Teams Athletic Scout Relationship Specialty Start Date End Date Tammie Bey MD [address] [place] [address] PCP - General Family Medicine 10/29/21 documented as of this encounter
--- OUTSIDE RECORDS SUMMARY | 2025-02-26 09:45 | XMS_ITS | Encounter Summary ---
Author Organization [employer] Address 75 [facility] 7t [place] [address] Care Team Providers Care Bottling Line Operator Name Role Phone Tammie Bey MD Primary Care Provider [phone] Reason for Visit * Reason Onset Date Comments Med Refill 01/24/2023 Encounter Details Date Type Department Care Team ([facility] st Contact Info) Description 01/24/2023 Telephone [facility] [address] [place], [place] [phone] Tammie Bey MD [address] [place], [place] [phone] Med Refill Social History Tobacco Use Types [...] Description 2025 10:00 AM EDT Office Visit [facility] OPT[facility] [address] [place] [address] TarkaMaricel, OD [address] [place] [address] 08/20/2025 8:45 AM EDT Office Visit [facility] ADULT DENTAL [address] [place] [address] Bret, Nydia [address] [place] [address] documented as of this encounter Visit Diagnoses Not on filedocumented in this encounter Care Teams Bottling Line Operator Relationship Specialty Start Date End Date Tammie Bey MD [address] [place] [address] PCP - General Family Medicine 10/29/21 documented as of this encounter
--- OUTSIDE RECORDS SUMMARY | 2025-02-26 09:45 | XMS_ITS | Encounter Summary ---
Author Organization [employer] Address 75 [facility] 7t [place] [address] Care Team Providers Care [employer] Name Role Phone Tammie Bey MD Primary Care Provider [phone] Reason for Visit * Reason Comments Med Refill Encounter Details Date Type Department Care Team (Late st Contact Info) Description 06/26/2022 Refill [facility] [address] [place], [place] [phone] Emili Padilla MD [address] [place], [place] [phone] Type 2 diabetes mellitus without complication, without long-term current use of insulin ([facility]) Social History Tobacco Use Types Packs/Day Years [...] Description 2025 10:00 AM EDT Office Visit [facility] OPTOM[facility] [address] [place], [place] [phone] Maricel Lindsey, OD [address] [place] [address] 08/20/2025 8:45 AM EDT Office Visit [facility] ADULT DENTAL [address] [place], [place] [phone] Julian Queenaris [address] [place] [address] documented as of this encounter Visit Diagnoses Diagnosis Type 2 diabetes mellitus without complication, without long-term current use of insulin (HCC) documented in this encounter Care Teams [employer] Relationship Specialty Start Date End Date Tammie Bey MD [address] [place], [place] [phone] PCP - General Family Medicine 10/29/21 documented as of this encounter
--- OUTSIDE RECORDS SUMMARY | 2025-02-26 09:45 | XMS_ITS | Encounter Summary ---
Author Organization [employer] Address 75 [facility] 7t [place] [address] Care Team Providers Care Comb Fixer Name Role Phone Tammie Bey MD Primary Care Provider [phone] Encounter Details Date Type Department Care Team (Late st Contact Info) Description 05/30/2022 Orders Only [facility] MEDICINE [address] [place], [place] [phone] Emili Padilla MD 230 [place] [address] Social History Tobacco Use Types Packs/Day Years [...] Description 2025 10:00 AM EDT Office Visit [facility] OPTOMETRY [address] [place] [address] Tarka, Maricel, OD [address] [place] [address] 08/20/2025 8:45 AM EDT Office Visit [facility] ADULT DENTAL [address] [place] [address] Bret, Nydia [address] [place] [address] documented as of this encounter Visit Diagnoses Not on filedocumented in this encounter Care Teams Comb Fixer Relationship Specialty Start Date End Date Tammie Bey MD [address] [place] [address] PCP - General Family Medicine 10/29/21 documented as of this encounter
--- OUTSIDE RECORDS SUMMARY | 2025-02-26 09:45 | XMS_ITS | Encounter Summary ---
Author Organization [employer] Address 75 [facility] 7t [place] [address] Care Team Providers Care Environmental Attorney Name Role Phone Tammie Bey MD Primary Care Provider [phone] Reason for Visit * Reason Comments Med Refill Encounter Details Date Type Department Care Team (Late st Contact Info) Description 10/20/2022 Refill [facility] MEDICINE [address] [place], [place] [phone] Shefali Alfaro DO [address] [place] [address] Social History Tobacco Use Types Packs/Day Years [...] Description 2025 10:00 AM EDT Office Visit [facility] OPTOMETRY [address] [place] [address] Maricel Lindsey, OD [address] [place] [address] 08/20/2025 8:45 AM EDT Office Visit [facility] ADULT DENTAL [address] [place] [address] Nydia Queen [address] [place], [place] [phone] documented as of this encounter Visit Diagnoses Not on filedocumented in this encounter Care Teams Environmental Attorney Relationship Specialty Start Date End Date Tammie Bey MD [address] [place] [address] PCP - General Family Medicine 10/29/21 documented as of this encounter
--- OUTSIDE RECORDS SUMMARY | 2025-02-26 09:45 | XMS_ITS | Encounter Summary ---
Author Organization [employer] Address 75 [facility] 7t [place] [address] Care Team Providers Care Volunteer Patient Representative Name Role Phone Tammie Bey MD Primary Care Provider [phone] Encounter Details Date Type Department Care Team (Late st Contact Info) Description 11/10/[address] [facility] MEDICINE [address] [place], [place] [phone] ProviderSole MD Social History Tobacco Use Types [...] Description 2025 10:00 AM EDT Office Visit [facility] OPTOMETRY [address] [place] [address] TarMaricel taylor, OD [address] [place] [address] 08/20/2025 8:45 AM EDT Office Visit [facility] ADULT DENTAL [address] [place] [address] Julian Queenaris [address] [place] [address] documented as of this encounter Procedures Procedure Name Priority Date/Time Associated Diagnosis Comments HM COLONOSCOPY Routine 01/26/2015 documented in this encounter Results * Colonoscopy (01/26/2015) us Historical Provider HEALTH MAINTENANCE Final Result documented in this encounter Visit Diagnoses Not on filedocumented in this encounter Care Teams Volunteer Patient Representative Relationship Specialty Start Date End Date Tammie Bey MD [address] [place] [address] PCP - General Family Medicine 10/29/21 documented as of this encounter
--- OUTSIDE RECORDS SUMMARY | 2025-02-26 09:45 | XMS_ITS | Encounter Summary ---
Author Organization [employer] Address 75 [facility] 7t [place] [address] Care Team Providers Care Chairperson Anesthesiology Name Role Phone Tammie Bey MD Primary Care Provider [phone] Encounter Details Date Type Department Care Team (Late st Contact Info) Description 03/22/2022 Orders Only [facility] MEDICINE [address] [place] [address] Rupal Estrada LPN Social History Tobacco Use [...] Description 2025 10:00 AM EDT Office Visit [facility] OPTOMETRY [address] [place] [address] Maricel Lindsey, OD [address] [place] [address] 08/20/2025 8:45 AM EDT Office Visit [facility] ADULT DENTAL [address] [place] [address] Bret, Nydia [address] [place] [address] documented as of this encounter Visit Diagnoses Not on filedocumented in this encounter Care Teams Chairperson Anesthesiology Relationship Specialty Start Date End Date Tammie Bey MD [address] [place] [address] PCP - General Family Medicine 10/29/21 documented as of this encounter
--- OUTSIDE RECORDS SUMMARY | 2025-02-26 09:45 | XMS_ITS | Encounter Summary ---
Author Organization [employer] Address 75 [facility] 7t [place] [address] Care Team Providers Care Appeals Officer Name Role Phone Tammie Bey MD Primary Care Provider [phone] Encounter Details Date Type Department Care Team (Late st Contact Info) Description 05/20/2022 Orders Only [facility] MEDICINE [address] [place], [place] [phone] Tammie Bey MD 230 [place] [address] Type 2 diabetes mellitus without complication, without long-term current use of insulin ([facility]) (Primary Dx) Social History Tobacco Use Types [...] Description 2025 10:00 AM EDT Office Visit [facility] OPTOMETRY [address] [place] [address] Maricel Lindsey OD [address] [place] [address] 08/20/2025 8:45 AM EDT Office Visit [facility] ADULT DENTAL [address] [place] [address] Bret Nydia [address] [place] [address] documented as of this encounter Visit Diagnoses Diagnosis Type 2 diabetes mellitus without complication, without long-term current use of insulin (HCC)- Primary documented in this encounter Care Teams Appeals Officer Relationship Specialty Start Date End Date Tammie Bey MD 230 [facility] [place] [address] PCP - General Family Medicine 10/29/21 documented as of this encounter
--- OUTSIDE RECORDS SUMMARY | 2025-02-26 09:45 | XMS_ITS | Encounter Summary ---
Author Organization [employer] Address 75 [facility] 7t [place] [address] Care Team Providers Care Security Delivery Specialist Name Role Phone Tammie Bey MD Primary Care Provider [phone] Encounter Details Date Type Department Care Team (Latest Contact Info) Description 05/10/2021 Abstract [facility] CONVERSIONS Dental, Provider, DDS Social History [...] Description 2025 10:00 AM EDT Office Visit [facility] OPTOMETRY [address] [place] [address] TarMaricel taylor, OD [address] [place] [address] 08/20/2025 8:45 AM EDT Office Visit [facility] ADULT DENTAL [address] [place] [address] Bret, Nydia [address] [place] [address] documented as of this encounter Visit Diagnoses Not on filedocumented in this encounter Care Teams Security Delivery Specialist Relationship Specialty Start Date End Date Tammie Bey MD [address] [place] [address] PCP - General Family Medicine 10/29/21 documented as of this encounter
--- OUTSIDE RECORDS SUMMARY | 2025-02-26 09:45 | XMS_ITS | Encounter Summary ---
Author Organization [employer] Address 75 [facility] 7t [place] [address] Care Team Providers Care Crop And Soil Technician Name Role Phone Tammie Bey MD Primary Care Provider [phone] Reason for Visit * Reason Onset Date Comments Med Refill 10/20/2022 Encounter Details Date Type Department Care Team ([facility] st Contact Info) Description 10/20/2022 Telephone [facility] MEDICINE [address] [place], [place] [phone] Tammie Bey MD 230 [place], [place] [phone] Med Refill Social History Tobacco Use Types [...] 11:08 AM EDT Medication was sent to [id number] on 09/07/22 90 day supply. * Telephone Encounter - Paulette Vann - 10/20/2022 11:04 AM EDT Tc from pt requesting med refill for medication valsartan (Diovan) 80 MG tablet. documented in this encounter Plan of Treatment Upcoming Encounters Date Type Department Care Team (Late st Contact Info) Description 2025 10:00 AM EDT Office Visit [facility] OPTOMETRY [address] [place] [address] TarkaMaricel, OD [address] [place] [address] 08/20/2025 8:45 AM EDT Office Visit [facility] ADULT DENTAL [address] [place] [address] Bret Nydia [address] [place] [address] documented as of this encounter Visit Diagnoses Not on filedocumented in this encounter Care Teams Crop And Soil Technician Relationship Specialty Start Date End Date Tammie Bey MD 230 [place] [address] PCP - General Family Medicine 10/29/21 documented as of this encounter
--- OUTSIDE RECORDS SUMMARY | 2025-02-26 09:45 | XMS_ITS | Encounter Summary ---
Author Organization [employer] Address 75 [facility] 7t [place] [address] Care Team Providers Care Philosophy Instructor Name Role Phone Tammie Bey MD Primary Care Provider [phone] Encounter Details Date Type Department Care Team (Latest Contact Info) Description 02/11/2019 Abstract [facility] CONVERSIONS Dental, Provider, [...] Office Visit [facility] OPTOMETRY [address] [place] [address] Maricel Lindsey, OD [address] [place] [address] 08/20/2025 8:45 AM EDT Office Visit [facility] ADULT DENTAL [address] [place] [address] Bret, Nydia [address] [place] [address] documented as of this encounter Visit Diagnoses Not on filedocumented in this encounter Care Teams Philosophy Instructor Relationship Specialty Start Date End Date Tammie Bey MD 230 [place] [address] PCP - General Family Medicine 10/29/21 documented as of this encounter
--- OUTSIDE RECORDS SUMMARY | 2025-02-26 09:46 | XMS_ITS | Encounter Summary ---
Author Organization [employer] Address [address] [facility] 7t [place] [address] Care Team Providers Care Concrete Hopper Operator Name Role Phone Tammie Bey MD Primary Care Provider [phone] Reason for Visit * Reason Onset Date Comments chart prep 02/25/2025 Encounter Details Date Type Department Care Team ([facility] st Contact Info) Description 02/25/2025 Telephone [facility] MEDICINE [address] [place], [place] [phone] Tammie Bey MD [address] [place], [place] [phone] chart prep Social History Tobacco Use Types Packs/Day Years [...] encounter Miscellaneous Notes * Telephone Encounter - Sandra Springer MA - 02/25/2025 1:56 PM EST Chart Prep Labs: done Images: not applicable Referrals: complete Vaccines due: Tdap Screenings: foot exam and Lipid panel Overdue care gaps: A1c, Glucose, and MIRELLA-7 documented in this encounter Plan of Treatment Upcoming Encounters Date Type Department Care Team (Late st Contact Info) Description 2025 10:00 AM EDT Office Visit [facility] OPTOMETRY [address] [place] [address] Maricel Lindsey, OD [address] [place] [address] 08/20/2025 8:45 AM EDT Office Visit [facility] ADULT DENTAL [address] [place] [address] Bret Nydia [address] [place] [address] documented as of this encounter Goals Goal [...] Care Plan Weekly blood pressure task No Nydia Queen Weekly blood pressure task Care Plan Weekly blood pressure task No BretNydia hunt Patient has chronic kidney disease Care Plan Patient has chronic kidney disease No BretNydia hunt Patient has chronic kidney disease Care Plan Patient has chronic kidney disease No BretNydia hunt Weekly blood pressure task Care Plan Weekly blood pressure task No Tammie Bey MD Weekly blood pressure task Care Plan Weekly blood pressure task No Tammie Bey MD Patient has chronic kidney disease Care Plan Patient has chronic kidney disease No Tammie Bey MD Patient has chronic kidney disease Care Plan Patient has chronic kidney disease No Tammie Bey MD Weekly blood pressure [...] Springer [place] documented as of this encounter Visit [...] documented as of this encounter Care Teams Concrete Hopper Operator Relationship Specialty Start Date End Date Tammie Bey MD [address] [place] [address] PCP - General Family Medicine 10/29/21 documented as of this encounter
--- OUTSIDE RECORDS SUMMARY | 2025-02-26 09:46 | XMS_ITS | Patient Health Record ---
Author Organization [facility] Address [address] [place] [address] Care Team Providers Care Quality Control Auditor Name Role Phone Tammie Bey M.D. Primary Care Provider Jaison Wyman [phone] Allergies Allergen (clinical drug ingredient) Drug/Non Drug Allergy documented on EMR Reaction Allergy Type Onset Date Status ioversol Ioversol Unknown Drug Allergy Active Results Component Value Reference Range Flag Notes Glucose, Whole Blood (Not ye t reviewed by provider) Interpretation: Performing Lab:[facility], [address] [place] [id number] Notes/Report: Glucose, Whole Blood 111 60-115 mg/dL N AL TER #: [id number] Reason For Referral No Information Medications Medication [...] Problem Screening for malignant neoplasm of colon (627479695) Screen for colon cancer (Z12.11) Active confirmed Problem Preprocedural examination (317090102146187) Preprocedural examination (Z01.818) Active confirmed Vital Signs Blood pressure diastolic 77 mm Hg 07/30/2024 Height 63 in 07/30/2024 Blood pressure systolic 111 mm Hg 07/30/2024 Weight 134 lbs 07/30/2024 BMI 23.73 kg/m2 07/30/2024 Procedures Procedure Date Ordered Date Performed Result Body Sit e COLONOSCOPY 07/30/2024 N/A Encounters Encounter Location Date Provider Diagnosis [facility] [address] [place], [place] [id number] 10/21/2024 Jaiosn Morin [facility] [address] [place] [address] 07/30/2024 Jaison Morin Screen for colon cancer [...] Insured Coverage Start Date Coverage End Date [facility] [address] Attn Claims [place] [id number] VICENTE ADIEL Self - patient is the insured Medical (General) History Medical History History ICD Code Asthma NIDDM Hypercholesterolemia Hypertension Hx of prostate cancer Denies [place],CVA,Renal disease Neg colonoscopy in 2003 with me and azucena marie colonoscopy in approx 2013 at [facility] Surgical History Surgery Date(Month/Year) Prostatectomy in approx. 2004 Obstruction of colon with a temporary colostomy--no cancer--? diverticulitis Tonsillectomy and adenoidectomy Appendectomy Work accident left forearm trauma
--- OUTSIDE RECORDS SUMMARY | 2025-02-26 09:46 | XMS_ITS | Encounter Summary ---
Author Organization [employer] Address 75 [facility] 7t [place] [address] Care Team Providers Care Multifocal Lens Inspector Name Role Phone Tammie Bey MD Primary Care Provider [phone] Encounter Details Date Type Department Care Team (Latest Contact Info) Description 02/26/2025 Travel Social History Tobacco Use Types Packs/Day [...] Description 2025 10:00 AM EDT Office Visit [facility] OPTOMETRY [address] [place] [address] Maricel Lindsey, OD [address] [place] [address] 08/20/2025 8:45 AM EDT Office Visit [facility] ADULT DENTAL [address] [place] [address] Bret, Nydia [address] [place] [address] documented as of this encounter Goals Goal [...] Care Plan Weekly blood pressure task No Bret, Nydia Weekly blood pressure task Care Plan Weekly blood pressure task No Nydia Queen Patient has chronic kidney disease Care Plan Patient has chronic kidney disease No Nydia Queen Patient has chronic kidney disease Care Plan Patient has chronic kidney disease No Nydia Queen Weekly blood pressure task [...] documented as of this encounter Care Teams Multifocal Lens Inspector Relationship Specialty Start Date End Date Tammie Bey MD [address] [place] [address] PCP - General Family Medicine 10/29/21 documented as of this encounter
--- OUTSIDE RECORDS SUMMARY | 2025-02-26 09:46 | XMS_ITS | Clinical Summary ---
Author Organization [employer] Address [address] [facility] 7[address] [place] [address] Care Team Providers Care Tightening Machine Operator Name Role Phone Tammie Bey MD Primary Care Provider [phone] Allergies Active Allergy Reactions Criticality Noted Date Comments Bakari Inhibitors Cough 02/22/2010 Ioversol Dizziness 04/25/2014 Medications Blood Glucose Monitoring Suppl (ONE TOUCH ULTRA MINI) w/Device kitIndications: Type 2 diabetes mellitus without complication, without long-term current use of insulin (HCC) Test twice daily, once fasting and once two hours after a meal 1 kit 05/21/19 23 Active Blood Glucose Monitoring Suppl (DuXploreTouch Verio) w/Device kitIndications: Type 2 diabetes mellitus without complication, without long-term current use of insulin (HCC) Use to check blood sugar 2x daily 1 kit 05/31/19 23 Active Melatonin Maximum Strength 5 MG tabletIndicatio ns:Primary insomnia TAKE 1 TABLET (5 MG) BY MOUTH IF NEEDED AT BEDTIME (INSOMINA). 90 tablet 3 03/21/19 24 Active Flowflex COVID-19 Ag Home Test kit USE DIRECTED 04/19/19 24 Active glucose blood (OneTouch Verio) test stripIndication s:Type 2 diabetes mellitus without complication, without long-term current use of insulin (HCC) Use to check blood sugar once daily 50 strip 11 11/25/19 24 Active loratadine (Claritin) 10 MG tablet Take 1 tablet (10 mg) by mouth if needed each day for allergies. 90 tablet 3 06/15/19 25 Active Lancets (DuXploreTouch Delica Plus [id number]) miscIndications :Type 2 diabetes mellitus without complication, without long-term current use of insulin (HCC) USE TO CHECK BLOOD SUGAR TWICE A DAY 100 each 11 08/01/19 25 Active rosuvastatin (Crestor) 20 MG tablet TAKE 1 TABLET BY MOUTH EVERYDAY AT BEDTIME 90 tablet 3 08/27/19 25 Active valsartan (Diovan) 80 MG tablet TAKE 1 TABLET BY MOUTH EVERY DAY 90 tablet 3 11/21/19 25 Active amLODIPine (Norvasc) 2.5 MG tablet TAKE 1 TABLET BY MOUTH EVERY DAY 90 tablet 3 02/18/20 25 Active famotidine (Pepcid) 20 MG tabletIndicatio ns:Gastroesopha geal reflux disease without esophagitis TAKE 1 TABLET BY MOUTH TWICE A DAY 180 tablet 2 02/18/20 25 Active metFORMIN XR (Glucophage-XR) 500 MG 24 hr tablet Take 1 tablet (500 mg) by mouth with evening meal. Do not crush, chew, or split. 90 tablet 3 02/27/20 25 026 Active amLODIPine (Norvasc) 2.5 MG tablet TAKE 1 TABLET BY MOUTH EVERY DAY 90 tablet 3 12/25/19 24 025 Discontinued metFORMIN XR (Glucophage-XR) 500 MG 24 hr tablet TAKE 2 TABLETS BY MOUTH EVERY DAY 180 tablet 3 05/29/19 25 025 Discontinued(Do se adjustment) famotidine (Pepcid) 20 MG tabletIndicatio ns:Gastroesopha geal reflux disease without esophagitis TAKE 1 TABLET BY MOUTH TWICE A DAY 180 tablet 2 05/29/19 25 025 Discontinued acetaminophen (Tylenol Extra Strength) 500 MG tabletIndicatio ns:Fever, unspecified fever cause Take 2 tablets (1,000 mg) by mouth every 6 (six) hours if needed for fever for up to 14 days. 42 tablet 01/28/20 25 025 amoxicillin-cla vulanate (Augmentin) 875-125 MG tabletIndicatio ns:Pneumonia due to infectious organism, unspecified laterality, unspecified part of lung Take 1 tablet by mouth 2 times daily for 5 days. 10 tablet 01/28/20 25 025 azithromycin (Zithromax Z-Roberto) 250 MG tabletIndicatio ns:Pneumonia due to infectious organism, unspecified laterality, unspecified part of lung Take 2 tablets (500 mg) on Day 1, followed by 1 tablet (250 mg) once daily on Days 2 through 5. 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 04/03 Assessment & Plan (06/25/2023 8:53 PM EDT): With residual ED and urinary incontinence [address] Tong at [facility], most recent appt Nov 2022 Needs larger sized pads, update DME order Referral for pelvic floor PT Assessment & Plan (02/06/2023 10:05 AM EST): With residual ED and urinary incontinence [address] Tong at [facility], most recent appt Nov 2022 Assessment & Plan (04/03/2022 6:29 PM EST): Will order 12 month supply of liners Hearing loss in left ear 04/29/2021 Essential hypertension 12/22/2014 Assessment & Plan (11/25/2023 12:29 PM EDT): Current A1c: 6.7 BMP: Normal Cr and K Microalbumin: <5 Foot Exam: normal 06/2023 Eye Exam: refer to [facility] Lipid panel: LDL 60, total [...] Encounters Date Type Department Care Team Description 02/26/2025 9:00 AM EST Office Visit [facility] [address] [place] [phone] Tammie Bey MD Type 2 diabetes mellitus without complication, without long-term current use of insulin ([facility]) 02/26/2025 Travel 02/25/2025 Telephone [facility] [address] [place] [address] Tammie Bey MD chart prep 02/18/2025 8:45 AM EST Office Visit [facility] [address] [place] [address] Nydia Queen Localized gingival recession (Primary Dx); Dental plaque; Missing teeth, acquired 02/17/2025 Refill [facility] [address] [place] [address] Tammie Bey MD Gastroesophageal reflux disease without esophagitis 01/28/2025 Results Follow-Up [facility] [address] [place] [address] Priya Best, JESUS XR Chest 2 Views, POCT Rapid Influenza A SANTACRUZ ID NOW, POCT Rapid Influenza B [place]Z ID NOW, Additional followed-up results: 3 01/27/2025 1:00 PM EST Office Visit [facility] [address] [place] [address] Priya Best, JESUS Fever, unspecified fever cause (Primary Dx); Chills; Elevated blood pressure reading in office with diagnosis of hypertension; Pneumonia due to infectious organism, unspecified laterality, unspecified part of lung 01/27/2025 Travel 12/19/2024 Telephone [facility] [address] [place] [address] Tammie Bey MD recall dec from Last 3 Months Immunizations Immunization Administration [...] Mass Index 23.24 02/26/2025 8:53 AM EST Plan of Treatment Upcoming Encounters Date Type Department Care Team (Late st Contact Info) Description 2025 10:00 AM EDT Office Visit [facility] [address] [place] [address] Maricel Lindsey, OD [address] [place] [address] 08/20/2025 8:45 AM EDT Office Visit [facility] [address] [place] [address] Bret, Nydia [address] [place] [address] Health Maintenance Due Date Last Done Comments CT Colonography 1950 FIT DNA/Cologuard 1950 FIT 1950 FOBT 1950 Sigmoidoscopy 1950 Diabetes: Foot Exam 06/22/2024 06/23/2023 DTaP/Tdap/Td Vaccines (2 - Td or Tdap) 09/24/2024 09/24/2014, 08/14/2000 Diabetes: Urine Protein Screening 11/23/2024 11/24/2023, 09/30/2022, 05/17/2021, Additional history exists Lipid Panel 11/23/2024 11/24/2023, 09/04, 05/17/2021, Additional history exists Dental Oral Exam 02/13/2025 08/13/2024, 07/06/2022 COVID-19 Vaccine ( season) 2025 11/26/2024, 11/24/2023, 12/05/2022, Additional history exists SDOH Screening 06/05/2025 06/05/2024 Alcohol/Substance Use Screening 06/14/2025 06/14/2024 Depression Screening 06/14/2025 06/14/2024, 06/15/19 Dental X-Ray: Bitewings 08/14/2025 08/14/19, 07/10/2023, 06/23/2022 Dental Prophylaxis 08/20/2025 02/18/2025, 0 08/13/2024, 02/09/2024, Additional history exists Diabetes: Hemoglobin A1C 08/27/2025 025, 06/14/2024, 11/24/2023, Additional history exists Tobacco Screening 02/18/2026 02/18/2025 Eye Exam 03/12/2026 03/12/2024, 010 09/2024, 03/12/2024, Additional history exists Dental X-Ray: [...] Weekly blood pressure task No Bret, Nydia Patient has chronic kidney disease Care [...] chronic kidney disease No Sandra Springer MA Procedures Procedure Name Priority Date/Time Associated Diagnosis Comments POCT GLUCOSE ([id number]) Routine 02/26/2025 8:55 AM EST Type 2 diabetes mellitus without complication, without long-term current use of insulin (HCC) POCT GLYCATED HEMOGLOBIN, TOTAL Routine 02/26/2025 8:55 AM EST Type 2 diabetes mellitus without complication, without long-term current use of insulin (HCC) CASE PRESENTATION, DETAILED AND EXTENSIVE TREATMENT PLANNING Routine 02/18/2025 8:45 AM EST Localized gingival recession Dental plaque Missing teeth, acquired ORAL HYGIENE INSTRUCTIONS Routine 02/18/2025 8:45 AM EST Localized gingival recession Dental plaque Missing teeth, acquired PROPHYLAXIS - ADULT Routine 02/18/2025 8 :45 AM EST Localized gingival recession Dental plaque Missing teeth, acquired TOPICAL APPLICATION OF FLUORIDE VARNISH Routine 02/18/2025 8:45 AM EST Localized gingival recession Dental plaque Missing teeth, acquired BASIC METABOLIC PANEL Routine 02/06/2025 10:44 AM EST Low sodium levels XR CHEST 2 VIEWS Routine 01/27/2025 3:07 [...] PM EST Chills HM COLONOSCOPY Routine 10/21/2024 INTRAORAL - COMPLETE SERIES OF RADIOGRAPHIC IMAGES Routine 08/13/2024 9:00 AM EDT Localized gingival recession Missing teeth, acquired Dental plaque PERIODIC ORAL EVALUATION - ESTABLISHED PATIENT Routine 08/13/2024 9:00 AM EDT ALBUMIN, RANDOM URINE W/CREATININE Routine 11/24/2023 10:45 [...] Recently Relevant to Health Maintenance Results * (ABNORMAL) POCT Hgb A1c (02/26/2025 8:55 AM EST) Hemoglobin A1C 6.4(A) 4.0 - 5.7 % QC Media Lot # [id number] Lot# Expiration Date [id number] Blood 02/26/2025 8:55 AM EST us Tammie Bey MD POINT OF CARE TEST ENTER/EDIT ORDERABLES Final Result * POCT Glucose (02/26/2025 8:55 AM EST) Glucose Blood, POC 135 60 - 200 mg/dL QC Media Lot # [id number] Lot# Expiration Date 7,726 Blood Capillary blood specimen / Unknown 02/26/2025 8:55 AM EST us Tammie Bey MD POINT OF CARE TEST ENTER/EDIT ORDERABLES Final Result * (ABNORMAL) Basic Metabolic Panel (02/06/2025 10:44 AM EST) Only the most recent of2 resultswithin the time period is included. Sodium 136 135 - 145 mmol/L [facility] Potassium 4.6 3.3 - 5.1 mmol/L [facility] Chloride 102 96 - 108 mmol/L [facility] Carbon Dioxide 28 22 - 29 mmol/L [facility] Anion Gap 11(L) 12 - 20 [facility] Urea Nitrogen (BUN) 15 9 - 16 mg/dL [facility] Creatinine, Serum 0.79 0.5 - 1.4 mg/dL [facility] Estimated Glomerular Filt Rate >60 [facility] Comment:Chronic Kidney Disea se: Estimated GFR < 60 mL/min/[id number] Kidney Disease: Estimated GFR < 15 mL/min/1.73m2 Glucose 136(H) 60 - 115 mg/dL [facility] Calcium 9.0 8.4 - 10.2 mg/dL [facility] Blood Venous blood specimen / Unknown 02/06/2025 10:44 AM EST 02/06/2025 1:20 PM EST Priya Best VOCATIONAL COORDINATOR LAB BLOOD ORDERABLES Final Resu lt [facility] [address] [place] [phone] * XR Chest 2 Views (01/27/2025 3:07 PM EST) Anatomical Region Laterality Modality Chest Radiographic Roberta ging 01/27/2025 3:07 PM EST Narrative 01/27/2025 3:27 PM EST [address] [address] XRay Report Signed Patient: John Shelby MR#: [id number] : 1950 Acct:[id number] Age/Sex: 74 / M ADM Date: 01/27/25 Loc: HO.HHCX Attending Dr: Priya Best Ordering Physician: Priya Best Date of Service: 01/27/25 Procedure(s): XR chest 2V Accession Number(s): [id number] cc: Priya Best; Tammie Bey Reason for [...] 01/27/25 1524 DD/ 1507 TD/TT: 01/27/25 1511 Purchasing Internship: Procedure Note Donotuseinterpreter, Image - 01/27/2025 [place] [address] XRay Report Signed Patient: John ShelbyMR#: [id number] : 1950cct:[id number] Age/Sex: 74 / MADM Date: 01/27/25 Loc: HO.HHCX Attending Dr: Priya Best Ordering Physician: Priya Best Date of Service: 01/27/25 Procedure(s): XR chest 2V Accession Number(s): [id number] cc: Priya Best; Tammie Bey Reason for [...] 01/27/25 1524 DD/ 1507 TD/TT: 01/27/25 1511 Purchasing Internship: us Priya Best VOCATIONAL COORDINATOR IMG XR PROCEDURES Final Result * POCT Rapid Influenza B SANTACRUZ ID NOW (01/27/2025 1:38 PM EST) Influenza B Negative Negative, Indeterminate [facility] QC Media Lot # [id number] [facility] Lot# Expiration Date [facility] Swab 01/27/2025 1:38 PM EST us Priya Best VOCATIONAL COORDINATOR POINT OF CARE TEST ENTER/EDIT O RDERABLES Final Result Performing Organization Address [facility]/ZIP Co de Phone Number [facility] [address] [place] [phone] * POCT Rapid Influenza A SANTACRUZ ID NOW (01/27/2025 1:37 PM EST) Influenza A Negative Negative, Indeterminate [facility] QC Media Lot # [id number] [facility] Lot# Expiration Date [facility] Swab 01/27/2025 1:37 PM EST us Priya Best VOCATIONAL COORDINATOR POINT OF CARE TEST ENTER/EDIT O RDERABLES Final Result Performing Organization Address City/[facility]/ZIP Co de Phone Number [facility] [address] [place] [phone] * POCT Rapid Covid-19 BinaxNOW (01/27/2025 1:11 PM EST) Rapid COVID Ag Negative QC Media Lot # [id number] Lot# Expiration Date [id number] Swab 01/27/2025 1:11 PM EST us Priya Best NP POINT OF CARE TEST ENTER/EDIT O RDERABLES Final Result * Hm Colonoscopy (10/21/2024) Colonoscopy Normal Normal Narrative Maggi Workman - 10/21/2024 Normal exam no further screening needed Historical Provider HEALTH MAINTENANCE Final Result * Albumin, Random Urine W/Creatinine (11/24/2023 10:45 AM EDT) Creatinine, Urine 153.23 mg/dL [facility] Microalbumin Urine 11.0 mg/L [facility] Microalbum Creatinine Ratio Ur 7.1 <30 ug/mg cr [facility] Comment:Albumin/Creatinine R atio Reference Ranges: Normal: < 30 ug/mg creatinine Microalbuminuria: 30 - 300 ug/mg creatinineClinical Albuminuria: > 300 ug/mg creatinine Urine (Urine, Random) 11/24/2023 10:45 AM EDT 11/24/2023 11:42 AM EDT Tammie Bey MD LAB URINE ORDERABLES Final Res ult Performing Organization Address [facility] Co de Phone Number [facility] [address] [place] [phone] * Hepatitis C Antibody with Reflex to HCV, RNA, Quantitative, Real-Time PCR (11/24/2023 10:40 AM EDT) Pathologist [facility] Hepatitis C Antibody Nonreactive Nonreactive [facility] Comment:Antibodies to HCV no t detected; does not exclude early acuteHCV infection. Blood Venous blood specimen / Unknown 11/24/2023 10:40 AM EDT 11/24/2023 11:23 AM EDT Tammie Bey MD LAB BLOOD ORDERABLES Final Res ult Performing Organization Address [facility]/ZIP Co de Phone Number [facility] [address] [place] [phone] * Lipid Panel, Standard (11/24/2023 10:40 AM EDT) Triglycerides 65 <150 mg/dL [facility] Comment:Desirable Triglyceri de: less than 150 mg/dLBorderline High Triglyceride 150-199 mg/dLHigh Triglyceride: 200-499 mg/dLVery High Triglyceride: greater than or equal to 5OO mg/dL Cholesterol 111 <200 mg/dL [facility] Comment:Desirable Cholestero l: less than 200 mg/dLBorderline High Cholesterol: 200-239 mg/dLHigh Cholesterol: greater than 239 mg/dL LDL Cholesterol Calculated 56 <100 mg/dL [facility] Comment:Desirable LDL: less than 100 mg/dLNear Optimal/Above Optimal LDL: 110- 129 mg/dLBorderline High LDL: 130-159 mg/dLHigh LDL: 160-189 mg/dLVery High LDL: greater than or equal to 190 mg/dL HDL Cholesterol 42 >40 mg/dL [facility] Comment:Desirable HDL: great er than 40 mg/dL Note: This HDL assay may give artificially low results in patients with liver disease. Blood Venous blood specimen / Unknown 11/24/2023 10:40 AM EDT 11/24/2023 11:23 AM EDT us Tammie Bey MD LAB BLOOD ORDERABLES Final Res ult [facility] [address] [place] [phone] from Last 3 Months or Most [...] 02/25/2025 Patient has chronic kidney disease 02/25/2025 Insurance [facility] [employer] (O D-SNP) [facility] Care Teams Tightening Machine Operator Relationship Specialty Start Date End Date Tammie Bey MD [address] [place] [phone] PCP - General Family Medicine 10/29/21
--- OUTSIDE RECORDS SUMMARY | 2025-02-26 09:46 | XMS_ITS | Encounter Summary ---
Author Organization [facility] [employer] Address [address] [facility] [address] [place] [address] Care Team Providers Care Certified Personal Finance Counselor Name Role Phone Tammie Bey MD Primary Care Provider [phone] Reason for Visit * Reason Comments Med Refill Encounter Details Date Type Department Care Team (Late st Contact Info) Description 10/20/2022 Refill [facility] [address] [place], [place] [phone] Shefali Alfaro DO [address] [place] [address] Social History Tobacco Use Types Packs/Day Years [...] 10:00 AM EDT Office Visit [facility] [address] [place] [address] Maricel Lindsey, OD [address] [place] [address] 08/20/2025 8:45 AM EDT Office Visit [facility] [address] [place] [address] Nydia Queen [address] [place], [place] [phone] documented as of this encounter Visit Diagnoses Not on filedocumented in this encounter Care Teams Certified Personal Finance Counselor Relationship Specialty Start Date End Date Tammie Bey MD [address] [place] [address] PCP - General Family Medicine 10/29/21 documented as of this encounter
[2025-02-26 11:06] LABS: MANUAL DIFF FLAG NO
[2025-02-26 11:12] LABS: Hematocrit 38.0 % (42.0-52.0); Hemoglobin 12.8 g/dl (14.0-18.0); Imm Gran Abs Auto 0.01 X10*3/uL (0.00-0.03); Imm Gran Pct Auto 0.3 % (0.0-0.4); Lymphocytes Absolute Auto 1.2 X10*3/uL (1.2-4.9); Mean Corpuscular HGB Conc 33.7 g/dl (31.0-36.0); Mean Corpuscular Hemoglobin 31.2 pg (27.0-33.0); Mean Corpuscular Volume 92.7 fL (80.0-98.0); NRBC Abs Auto 0.000 X10*3/uL (0.0-0.012); NRBC Pct Auto 0.0 /100WBC (0.0-0.2); Platelet Count 157 X10*3/uL (160-400); Red Blood Count 4.10 X10*6/uL (4.60-5.80); White Blood Count 3.9 X10*3/uL (4.8-10.8)
[2025-02-26 11:43] LABS: Cholesterol 141 mg/dL (<200); HDL Cholesterol 58 mg/dL (>40); Triglycerides 76 mg/dL (<150)
[2025-02-26 11:53] LABS: Microalbum/Creatinine Ratio Ur 6.1 ug/mg cr (<30)
== END 2025-02-26 09:40 | disposition home or self-care (01) ==
LOC: HO.HHCL 09:39
PROVIDERS: PCP General Practice; Visit Provider General Practice
DX: E11.9 Type 2 diabetes mellitus without complications (principal)
CPT/HCPCS: 36415; 80061; 82043; 82570; 85025